=== PATIENT | female | born 1945 | race American Indian/Alaskan Native ===

== ENCOUNTER 2019-03-20 13:34 | Inpatient (IN) | payer MEDICARE ==
[2019-03-20 16:30] LABS: Bacteria,Urine 2+ /HPF (Negative); Bilirubin,Urine NEG (Negative); Blood,Urine NEG (Negative); Color,Urine Yellow (Yellow); Mucus,Urine FEW /HPF; Protein,Urine <15 mg/dL mg/dL (Negative); RBC,Urine < 1.0 /HPF (0.0-6.0); Urobilinogen,Urine < 2.0 mg/dL (<2.0)
--- NOTE | 2019-03-20 17:08 | Emergency Department Report ---
ED Altered Mental Status HPI - General Chief Complaint: Altered Mental Status Stated Complaint: AMS/WEAKNESS Time Seen by Provider: 03/20/19 17:04 Source: patient, family, EMS Mode of arrival: Stretcher Limitations: Physical Limitation - History of Present Illness Initial Comments: Patient is a 73-year-old female that presents emergency room with complaints of weakness, confusion, altered mental status. Patient states her symptoms started 3 days ago.. Patient states she had a stroke about 4 years ago leaving her with left-sided weakness. Patient states that she is having worsening left-sided weakness.. Patient denies fever and chills. Patient denies chest pain shortness of breath. Patient denies falling. Patient denies headache.. MD Complaint: altered mental status, confusion, weakness -: Sudden Severity: severe Consistency of Symptoms: constant Associated Symptoms: loss of appetite, malaise, weakness, foul smelling urine, difficulty walking - Related Data Home Medications Medication Instructions Recorded Confirmed Last Taken Lisinopril [Zestril TAB] 40 mg PO QDAY 03/20/19 03/20/19 03/19/19 cloNIDine [Catapres] 0.1 mg PO QHS 03/20/19 03/20/19 03/19/19 hydroCHLOROthiazide [HCTZ] 25 mg PO QDAY 03/20/19 03/20/19 03/19/19 metFORMIN [Glucophage] 500 mg PO BID 03/20/19 03/20/19 03/19/19 Previous Rx's Medication Instructions Recorded Last Taken Type amLODIPine [Norvasc] 10 mg PO DAILY #90 tab 05/12/13 03/19/19 Rx Allergies Allergy/AdvReac Type Severity Reaction Status Date / Time Penicillins Allergy Unknown Verified 05/12/13 12:57 ED Review of Systems ROS: Stated complaint: AMS/WEAKNESS Other details as noted in HPI Constitutional: denies: chills, fever Eyes: denies: eye pain, eye discharge, vision change ENT: denies: ear pain, throat pain Respiratory: denies: cough, shortness of breath, wheezing Cardiovascular: denies: chest pain, palpitations Endocrine: no symptoms reported Gastrointestinal: denies: abdominal pain, nausea, diarrhea Genitourinary: denies: urgency, dysuria, discharge Musculoskeletal: denies: back pain, joint swelling, arthralgia Skin: denies: rash, lesions Neurological: weakness, confusion. denies: headache, paresthesias Psychiatric: denies: anxiety, depression Hematological/Lymphatic: denies: easy bleeding, easy bruising ED Past Medical Hx - Past Medical History Previous Medical History?: Yes Hx Hypertension: Yes (has never been on blood pressure medication) Hx Diabetes: Yes Additional medical history: anemia - Surgical History Past Surgical History?: No - Family History Family history: no significant - Social History Smoking Status: Never Smoker Substance Use Type: None - Medications Home Medications: Home Medications Medication Instructions Recorded Confirmed Last Taken Type amLODIPine [Norvasc] 10 mg PO DAILY #90 tab 05/12/13 03/20/19 03/19/19 Rx Lisinopril [Zestril TAB] 40 mg PO QDAY 03/20/19 03/20/19 03/19/19 History cloNIDine [Catapres] 0.1 mg PO QHS 03/20/19 03/20/19 03/19/19 History hydroCHLOROthiazide [HCTZ] 25 mg PO QDAY 03/20/19 03/20/19 03/19/19 History metFORMIN [Glucophage] 500 mg PO BID 03/20/19 03/20/19 03/19/19 History ED Physical Exam - General Limitations: No Limitations, Physical Limitation General appearance: alert, in no apparent distress - Head Head exam: Present: atraumatic, normocephalic - Eye Eye exam: Present: normal appearance, PERRL Pupils: Present: normal accommodation - ENT ENT exam: Present: mucous membranes moist - Neck Neck exam: Present: normal inspection - Respiratory Respiratory exam: Present: normal lung sounds bilaterally. Absent: respiratory distress, wheezes - Cardiovascular Cardiovascular Exam: Present: regular rate, normal rhythm. Absent: systolic murmur, diastolic murmur, rubs, gallop - GI/Abdominal GI/Abdominal exam: Present: soft, normal bowel sounds. Absent: distended, tend erness, guarding - Rectal Rectal exam: Present: deferred - Extremities Exam Extremities exam: Present: normal inspection - Back Exam Back exam: Present: normal inspection - Neurological Exam Neurological exam: Present: alert, altered (patient is alert and oriented 2. Patient is oriented to self, place but disoriented to date) - Psychiatric Psychiatric exam: Present: normal affect, normal mood - Skin Skin exam: Present: warm, dry, intact, normal color. Absent: rash - Assessment Assessment Interval: Baseline - Level of Consciousness 1a. Level of Consciousness: alert/keenly responsive - LOC Questions 1b. LOC Questions: answers both correctly - LOC Command 1c. LOC Commands: performs tasks correctly - Best Gaze 2. Best Gaze: normal - Visual 3. Visual: no visual loss - Facial Palsy 4. Facial Palsy: normal symmetrical movement - Motor Arm 5a. Motor Arm Left: no movement 5b. Motor Arm Right: no drift - Motor Leg 6a. Motor Leg Left: some gravity effort 6b. Motor Leg Right: no drift - Limb Ataxia 7. Limb Ataxia: absent - Sensory 8. Sensory: normal - Best Language 9. Best Language: no aphasia - Dysarthria 10. Dysarthria: normal - Extinction and Inattention 11. Extinction/Inattention: no abnormality - Scoring Total Score: 6 Stroke Severity: Moderate Stroke ED Course Vital Signs 03/20/19 03/20/19 16:10 18:06 Pulse Rate 75 67 Respiratory 16 18 Rate Blood Pressure 138/60 129/86 [Left] O2 Sat by Pulse 99 97 Oximetry - Reevaluation(s) Reevaluation #1: I discussed all results with patient. I discussed plan of care with patient and family. Patient and family agree plan of care and admission. Patient will be admitted to the hospital service. 03/20/19 20:19 - Consultations Consultation #1: I discussed case with neurologist. Neurologist does not recommend any emergent imaging at this time. 03/20/19 20:11 Consultation #2: Hospitalist consult for admission. Hospitalist to admit patient. 03/20/19 20:20 - Lab Data Result diagrams: 03/20/19 16:20 03/20/19 16:20 Lab Results 03/20/19 03/20/19 03/20/19 Range/Units 16:20 16:20 16:22 WBC 9.9 (4.5-11.0) K/mm3 RBC 4.40 (3.65-5.03) M/mm3 Hgb 12.1 (10.1-14.3) gm/dl Hct 37.2 (30.3-42.9) % MCV 85 (79-97) fl MCH 28 (28-32) pg MCHC 33 (30-34) % RDW 14.0 (13.2-15.2) % Plt Count 198 (140-440) K/mm3 Lymph % (Auto) 15.0 (13.4-35.0) % [place] % (Auto) 6.1 (0.0-7.3) % Eos % (Auto) 0.0 (0.0-4.3) % Baso % (Auto) 0.5 (0.0-1.8) % Lymph # 1.5 (1.2-5.4) K/mm3 [place] # 0.6 (0.0-0.8) K/mm3 Eos # 0.0 (0.0-0.4) K/mm3 Baso # 0.0 (0.0-0.1) K/mm3 Seg Neutrophils % 78.4 H (40.0-70.0) % Seg Neutrophils # 7.7 (1.8-7.7) K/mm3 Sodium 139 (137-145) mmol/L Potassium 3.9 (3.6-5.0) mmol/L Chloride 103.6 (98-107) mmol/L Carbon Dioxide 20 L (22-30) mmol/L Anion Gap 19 mmol/L BUN 22 H (7-17) mg/dL Creatinine 0.9 (0.7-1.2) mg/dL Estimated GFR > 60 ml/min BUN/Creatinine Ratio 24 % Glucose 87 (65-100) mg/dL POC Glucose (70-105) Calcium 9.5 (8.4-10.2) mg/dL Urine Color Yellow (Yellow) Urine Turbidity Slightly-cloudy (Clear) Urine pH 5.0 (5.0-7.0) Ur Specific [place] 1.018 (1.003-1.030) Urine Protein <15 mg/dl (Negative) mg/dL Urine Glucose (UA) Neg (Negative) mg/dL Urine Ketones Neg (Negative) mg/dL Urine Blood Neg (Negative) Urine Nitrite Neg (Negative) Urine Bilirubin Neg (Negative) Urine Urobilinogen < 2.0 (<2.0) mg/dL Ur Leukocyte Esterase Neg (Negative) Urine WBC (Auto) 1.0 (0.0-6.0) /HPF Urine RBC (Auto) < 1.0 (0.0-6.0) /HPF Urine Bacteria (Auto) 2+ (Negative) /HPF Urine Mucus Few /HPF 03/20/19 Range/Units 16:33 WBC (4.5-11.0) K/mm3 RBC (3.65-5.03) M/mm3 Hgb (10.1-14.3) gm/dl Hct (30.3-42.9) % MCV (79-97) fl MCH (28-32) pg MCHC (30-34) % RDW (13.2-15.2) % Plt Count (140-440) K/mm3 Lymph % (Auto) (13.4-35.0) % [place] % (Auto) (0.0-7.3) % Eos % (Auto) (0.0-4.3) % Baso % (Auto) (0.0-1.8) % Lymph # (1.2-5.4) K/mm3 [place] # (0.0-0.8) K/mm3 Eos # (0.0-0.4) K/mm3 Baso # (0.0-0.1) K/mm3 Seg Neutrophils % (40.0-70.0) % Seg Neutrophils # (1.8-7.7) K/mm3 Sodium (137-145) mmol/L Potassium (3.6-5.0) mmol/L Chloride (98-107) mmol/L Carbon Dioxide (22-30) mmol/L Anion Gap mmol/L BUN (7-17) mg/dL Creatinine (0.7-1.2) mg/dL Estimated GFR ml/min BUN/Creatinine Ratio % Glucose (65-100) mg/dL POC Glucose 107 H (70-105) Calcium (8.4-10.2) mg/dL Urine Color (Yellow) Urine Turbidity (Clear) Urine pH (5.0-7.0) Ur Specific [place] (1.003-1.030) Urine Protein (Negative) mg/dL Urine Glucose (UA) (Negative) mg/dL Urine Ketones (Negative) mg/dL Urine Blood (Negative) Urine Nitrite (Negative) Urine Bilirubin (Negative) Urine Urobilinogen (<2.0) mg/dL Ur Leukocyte Esterase (Negative) Urine WBC (Auto) (0.0-6.0) /HPF Urine RBC (Auto) (0.0-6.0) /HPF Urine Bacteria (Auto) (Negative) /HPF Urine Mucus /HPF - EKG Data -: EKG Interpreted by Wy EKG shows normal: sinus rhythm, axis, intervals, ST-T waves Rate: normal - Radiology Data Radiology results: report reviewed CT head/brain wo con INDICATION / CLINICAL INFORMATION: 73 years Female; AMS. TECHNIQUE: Routine CT head without contrast. All CT scans at this location are performed using CT dose reduction for ALARA by means of automated exposure control. COMPARISON: None. FINDINGS: BRAIN / INTRACRANIAL CONTENTS: Old, branch MCA infarct seen in the anterior parietal lobe on the right and the left inferior parietal temporal region. Subtle ischemic changes seen in the right parietal temporal region - diffusion imaging by MRI may be helpful for further evaluation. Small branch, acute/subacute MCA infarct suggested on the right. There may be ischemic changes in the head of the caudate on the right. Otherwise, no acute hemorrhage, mass effect, midline shift, hydrocephalus, or acute, large territorial infarct. Mild to moderate cerebral and cerebellar atrophy. There are [id number] areas of decreased attenuation in the white matter of the cerebral hemispheres, as well as the gangliocapsular regions. These are nonspecific findi ngs and may be related to microangiopathy (hypertension, diabetes, atherosclerosis), given the patient's age. It might be difficult to evaluate for small areas of ischemia without diffusion imaging by MRI. CRANIOCERVICAL JUNCTION: No significant abnormality. ORBITS: No significant abnormality of visualized orbits. SINUSES / MASTOIDS: No significant abnormality of the visualized paranasal sinuses or mastoid air cells. ADDITIONAL FINDINGS: Atherosclerotic disease is seen in the anterior and pos terior circulation. IMPRESSION: 1. I am concerned about a small area of ischemia in the right parietal temporal region - right MCA territory. Right gangliocapsular involvement cannot be excluded as well. Diffusion imaging by MRI would be helpful for further evaluation, if clinically warranted. 2. Otherwise, no focal mass, hemorrhage, hydrocephalus, or acute, large territorial infarct appreciated. CT cervical spine without contrast CLINICAL HISTORY: Altered mental status, fall FINDINGS: No previous exams available for comparison. The motion and positioning significant degrades the image quality. However, there is mild curvature of the cervical spine is slight reversal of the cervical lordosis. Furthermore, there are multilevel degenerative changes involving the cervical spine at. However, there is no definitive CT evidence of acute fracture. There is mild rotation at C1-2 which appears to be related to the positioning and curvature of the spine at. The facet and uncovertebral joint hypertrophy at C3 L4 result in moderate to marked neural foraminal narrowing bilaterally at. The spondylosis at C4-5 effaces the ventral subarachnoid space at. There is marked left and moderate to marked right neural foraminal narrowing. The spondylosis at C5-6 also effaces the ventral subarachnoid space with encroachment on the left lateral recess at. There is marked left neural foraminal narrowing. There is also moderate to marked left foraminal narrowing at C6-7. The left facet joint hypertrophy at C7-T1 results in moderate left foraminal narrowing. No prevertebral soft tissue fluid collections are identified at. There is notable atherosclerotic calcification involving the carotid bifurcations bilaterally. There is relative a sclerotic appearance of the visualized occipital bone which is of unclear etiology. All CT scans at this location are performed using the CT dose reduction for [employer] by means of automated exposure control. IMPRESSION: There is mild curvature of the spine with multilevel degenerative changes as detailed above. There is no definitive CT evidence of acute fracture involving the cervical spine. - Medical Decision Making Is a 73-year-old female that presents emergency room with worsening left-sided weakness. Patient had a stroke years ago leaving her weak on the left side. Patient's weakness has increased, symptoms started 3 days ago. Patient also complained of confusion and altered mental status. Patient oriented in the ER. Patient had labs unremarkable. Patient had CT done which shows a acute stroke. Patient admitted to the hospitalist service. - Differential Diagnosis CVA. Weakness. Confusion. AMS Critical Care Time: Yes Critical care attestation.: If time is entered above; I have spent that time in minutes in the direct care of this critically ill patient, excluding procedure time. Critical Care Time: 45 minutes ED Disposition Clinical Impression: Weakness, Confusion Altered mental state Qualifiers: Altered mental status type: unspecified Qualified Code(s): R41.82 - Altered mental status, unspecified CVA (cerebral vascular accident) Qualifiers: CVA mechanism: unspecified Qualified Code(s): I63.9 - Cerebral infarction, unspecified Disposition: 09 OP ADMIT IP TO THIS HOSP Is pt being admited?: Yes Does the pt Need Aspirin: No Condition: Critical Time of Disposition: 20:25
--- NOTE | 2019-03-20 17:49 | Cat Scan Report ---
CT head/brain wo con INDICATION / CLINICAL INFORMATION: 73 years Female; AMS. TECHNIQUE: Routine CT head without contrast. All CT scans at this location are performed using CT dos e reduction for ALARA by means of automated exposure control. COMPARISON: None. FINDINGS: BRAIN / INTRACRANIAL CONTENTS: Old, branch MCA infarct seen in the anterior parietal lobe on the righ t and the left inferior parietal temporal region. Subtle ischemic changes seen in the right parietal temporal region - diffusion imaging by MRI may be helpful for further evaluation. Small branch, acute/subacute MCA infarct suggested on the right. Ther e may be ischemic changes in the head of the caudate on the right. Otherwise, no acute hemorrhage, mass effect, midline shift, hydrocephalus, or acute, large territoria l infarct. Mild to moderate cerebral and cerebellar atrophy. There are [id number] areas of decreased attenuation in the white matter of the cerebral hemisph eres, as well as the gangliocapsular regions. These are nonspecific findings and may be related to mi croangiopathy (hypertension, diabetes, atherosclerosis), given the patient's age. It might be difficu lt to evaluate for small areas of ischemia without diffusion imaging by MRI. CRANIOCERVICAL JUNCTION: No significant abnormality. ORBITS: No significant abnormality of visualized orbits. SINUSES / MASTOIDS: No significant abnormality of the visualized paranasal sinuses or mastoid air scot ls. ADDITIONAL FINDINGS: Atherosclerotic disease is seen in the anterior and posterior circulation. IMPRESSION: 1. I am concerned about a small area of ischemia in the right parietal temporal region - right MCA te rritory. Right gangliocapsular involvement cannot be excluded as well. Diffusion imaging by MRI would be helpful for further evaluation, if clinically warranted. 2. Otherwise, no focal mass, hemorrhage, hydrocephalus, or acute, large territorial infarct appreciat ed. Signer Name: Gordo Koenig MD, III Signed: 03/20/2019 5:44 PM Workstation Name: [id number]
--- NOTE | 2019-03-20 18:35 | Cat Scan Report ---
CT cervical spine without contrast CLINICAL HISTORY: Altered mental status, fall FINDINGS: No previous exams available for comparison. The motion and positioning significant degrades the image quality. However, there is mild curvature of the cervical spine is slight reversal of the cervical lordosis. Furthermore, there are multilevel degenerative changes involving the cervical spin e at. However, there is no definitive CT evidence of acute fracture. There is mild rotation at C1-2 which appears to be related to the positioning and curvature of the sp ine at. The facet and uncovertebral joint hypertrophy at C3 L4 result in moderate to marked neural fo raminal narrowing bilaterally at. The spondylosis at C4-5 effaces the ventral subarachnoid space at. There is marked left and moderate to marked right neural foraminal narrowing. The spondylosis at C5-6 also effaces the ventral subarachnoid space with encroachment on the left lat eral recess at. There is marked left neural foraminal narrowing. There is also moderate to marked lef t foraminal narrowing at C6-7. The left facet joint hypertrophy at C7-T1 results in moderate left for aminal narrowing. No prevertebral soft tissue fluid collections are identified at. There is notable atherosclerotic baldemar cification involving the carotid bifurcations bilaterally. There is relative a sclerotic appearance o f the visualized occipital bone which is of unclear etiology. All CT scans at this location are perfo rmed using the CT dose reduction for ALARA by means of automated exposure control. IMPRESSION: There is mild curvature of the spine with multilevel degenerative changes as detailed above. There is no definitive CT evidence of acute fracture involving the cervical spine. Signer Name: Alfredo Tovar MD Signed: 03/20/2019 6:31 PM Workstation Name: [id number]
[2019-03-20 19:58] LABS: Basophils % (Auto) 0.5 % (0.0-1.8); Hematocrit 37.2 % (30.3-42.9); Hemoglobin 12.1 gm/dl (10.1-14.3); Lymphocytes # (Auto) 1.5 K/mm3 (1.2-5.4); Mean Corpuscular HGB Conc 33 % (30-34); Mean Corpuscular Volume 85 fl (79-97); Monocytes # (Auto) 0.6 K/mm3 (0.0-0.8); Monocytes % (Auto) 6.1 % (0.0-7.3); Platelet Count 198 K/mm3 (140-440)
[2019-03-20 20:17] LABS: BUN/Creatinine Ratio 24; Blood Urea Nitrogen 22 mg/dL (7-17); Calcium 9.5 mg/dL (8.4-10.2); Hemolysis Index 13
[2019-03-20] MEDS ORDERED: DEXTROSE 50% IN WATER (25GM) 50 ML SYRINGE IV PRN (23:20)
[2019-03-21 01:24] LABS: Creatine Kinase MB 3.1 ng/mL (0.0-4.0)
[2019-03-21] MEDS: INSULIN REGULAR, HUMAN 100 UNITS/1 ML SUB-Q SCH ×6 (02:08→21:49)
[2019-03-21] MEDS ORDERED: diphenhydrAMINE 25 MG CAP PO ONE (02:48)
--- NOTE | 2019-03-21 05:58 | History and Physical Report ---
CHIEF COMPLAINT: Altered mental status. HISTORY OF PRESENTING ILLNESS: The patient is a 73-year-old female who said she has been feeling weak and then was confused and fell down in the staircase. The patient said the symptoms started about 3 days ago. There was no history of chest pain, no history of shortness of breath, nausea, vomiting or fever or chills. There was also no history of headache and the patient presented for evaluation in the Emergency Room. There was also history of difficulty with ambulation and loss of appetite. PAST MEDICAL HISTORY: Pertinent for hypertension, diabetes mellitus, anemia, cerebrovascular accident. PAST SURGICAL HISTORY: Unremarkable. FAMILY HISTORY: Family history is noncontributory. SOCIAL HISTORY: The patient does not smoke, does not drink alcohol and does not use illicit drugs. MEDICATIONS: The patient is on Norvasc 10 mg by mouth daily, lisinopril 40 mg by mouth daily, Catapres 0.1 mg by mouth at bedtime, hydrochlorothiazide 25 mg by mouth daily and Glucophage 500 mg by mouth twice daily. ALLERGIES: The patient is allergic to PENICILLIN. REVIEW OF SYSTEMS: CONSTITUTIONAL: There is no fever, no chills, no diaphoresis. HEENT: There is no headache or sore throat. CARDIOVASCULAR SYSTEM: There is no chest pain or orthopnea. RESPIRATORY SYSTEM: There is no shortness of breath or cough. GASTROINTESTINAL SYSTEM: There is no nausea, no vomiting, no abdominal pain, diarrhea or constipation. NEUROLOGICAL SYSTEM: Altered mental status noted, weakness noted. There is no numbness. MUSCULOSKELETAL SYSTEM: There is no joint pain or swelling. DERMATOLOGICAL SYSTEM: There is no skin rash or itching. GENITOURINARY SYSTEM: There is dysuria, but no hematuria or flank pain. Rest of system review is normal. PHYSICAL EXAMINATION: GENERAL: At the time of exam, the patient was found to be alert, oriented to person only and not in acute distress. VITAL SIGNS: Initially show normal temperature with pulse of 75, respirations 16, blood pressure 138/60, O2 sat of 99% on room air. HEENT: Showed pupils to be equal, round, reactive to light and accommodating. Extraocular muscles are intact. NECK: Neck is supple with no JVD or carotid bruit. CARDIOVASCULAR SYSTEM: Showed normal first and second heart sounds with no gallops or murmurs. RESPIRATORY SYSTEM: Showed good air entry on both sides of the lungs with no abnormal breath sounds. GASTROINTESTINAL SYSTEM: Showed abdomen to be full, soft, nontender with no organomegaly or rigidity. NEUROLOGIC: Shows weakness on the left side of the body, which is chronic from previous cerebrovascular accident. No new focal deficit was elicited. MUSCULOSKELETAL SYSTEM: Showed no joint swelling or tenderness. DERMATOLOGICAL SYSTEM: Showed no skin rash. GENITOURINARY SYSTEM: Showing no costovertebral angle tenderness. PERTINENT LABORATORY AND IMAGING STUDIES: The patient had CT of the head without contrast done, which shows a small area of ischemia in the right parietotemporal region, which the radiologist said is concerning and this is found in the right parietotemporal region of the right MCA territory. There is right ____ involvement which the radiologist said cannot be excluded. Radiologist said that diffusion imaging by MRI will be helpful for further evaluation if clinically warranted. There is finding of no focal mass, no hemorrhage, no hydrocephalus or acute large territorial infarct seen. The patient also has CT of the cervical spine without contrast done and this shows mild curvature of the spine with multilevel degenerative changes as detailed above. There is no definite CT evidence of acute fracture involving cervical spine. LABORATORY RESULTS: The patient had CBC done that came back unremarkable and the patient's chemistry was unremarkable. Cardiac enzyme was normal. The patient's urinalysis was normal. DIAGNOSES: 1. Cerebrovascular accident. 2. Weakness. PLAN OF CARE: 1. The patient will be admitted to telemetry. 2. The patient will have MRI of the brain without contrast done this morning. 3. The patient will have bilateral carotid Doppler done as well as 2D echo done this morning. 4. The patient will have Neurology consult with Dr. Carrera this Saturday morning, 03/21/2019 if he is available. 5. The patient will have physical therapy consult for evaluation and treatment for weakness. 6. The patient will remain n.p.o. until swallow test is passed. 7. The patient will have serial cardiac enzymes involving troponin, total CK and CK-MB checked every 6 hours x 2 more levels. 8. The patient will be on Accu-Chek every 4 hours followed by low-dose sliding scale using regular insulin coverage. JOB# [id number] OCN/NTS MTDD
[2019-03-21 06:47] LABS: Creatine Kinase MB 3.7 ng/mL (0.0-4.0)
[2019-03-21] MEDS: ASPIRIN 325 MG TAB PO SCH (10:56)
--- NOTE | 2019-03-21 11:03 | Consultation ---
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- suspect multi infarct dementia like Medications and Allergies Allergies Allergy/AdvReac Type Severity Reaction Status Date / Time Penicillins Allergy Unknown Verified 05/12/13 12:57 Home Medications Medication Instructions Recorded Confirmed Last Taken Type amLODIPine [Norvasc] 10 mg PO DAILY #90 tab 05/12/13 03/20/19 03/19/19 Rx Lisinopril [Zestril TAB] 40 mg PO QDAY 03/20/19 03/20/19 03/19/19 History cloNIDine [Catapres] 0.1 mg PO QHS 03/20/19 03/20/19 03/19/19 History hydroCHLOROthiazide [HCTZ] 25 mg PO QDAY 03/20/19 03/20/19 03/19/19 History metFORMIN [Glucophage] 500 mg PO BID 03/20/19 03/20/19 03/19/19 History Active Meds: Active Medications Aspirin (Aspirin) 325 mg PO QDAY [facility] Last Admin: 03/21/19 10:56 Dose: 325 mg Documented by: Atorvastatin Calcium (Lipitor) 80 mg PO QHS [facility] Dextrose (D50w (25gm) Syringe) 50 ml IV PRN PRN PRN Reason: Hypoglycemia Insulin Human Regular (Humulin R) 0 units SUB-Q ACHS [facility]; Protocol Pneumococcal Polyvalent Vaccine (Pneumovax 23) 0.5 ml IM .ONCE ONE Stop: 03/21/19 12:01 Physical Examination - Vital Signs Vital Signs: Vital Signs Pulse Resp BP Pulse Ox 75 16 138/60 99 03/20/19 16:10 03/20/19 16:10 03/20/19 16:10 03/20/19 16:10 Results - Laboratory Findings CBC and BMP: 03/20/19 16:20 03/20/19 16:20 Abnormal Lab Findings: Abnormal Labs 03/20/19 03/20/19 03/20/19 16:20 16:20 16:33 Seg Neutrophils % 78.4 H Carbon Dioxide 20 L BUN 22 H POC Glucose 107 H Total Creatine Kinase 03/21/19 03/21/19 03/21/19 01:38 04:56 05:50 Seg Neutrophils % Carbon Dioxide BUN POC Glucose 131 H 150 H Total Creatine Kinase 143 H 03/21/19 08:00 Seg Neutrophils % Carbon Dioxide BUN POC Glucose 128 H Total Creatine Kinase
[2019-03-21] MEDS ORDERED: PNEUMOCOCCAL 23 Valent 0.5 ML VIAL IM ONE (12:00)
--- NOTE | 2019-03-21 12:07 | Progress Note ---
Assessment and Plan Assessment and plan: Right MCA CVA. CT shows severe atrophy and massive ?old right MCA stroke. Follow-up MRI Multi-infarct dementia. Neurology following. Hypertension. Resume home antihypertensive medications. Diabetes mellitus type II. Continue Accu-Cheks and sliding scale insulin. Resume metformin. Generalized weakness. PT/OT eval History Interval history: No new issues overnight. Hospitalist Physical - Constitutional Vitals: Temp Pulse Resp BP Pulse Ox 98.7 F 88 18 155/61 94 03/21/19 07:51 03/21/19 07:51 03/21/19 07:51 03/21/19 07:51 03/21/19 07:51 General appearance: Present: no acute distress, well-nourished - EENT Eyes: Present: PERRL, EOM intact ENT: hearing intact, clear oral mucosa, dentition normal - Neck Neck: Present: supple, normal ROM - Respiratory Respiratory effort: normal Respiratory: bilateral: CTA - Cardiovascular Rhythm: regular Heart Sounds: Present: S1 & S2. Absent: gallop, rub - Extremities Extremities: no ischemia, No edema, Full ROM - Abdominal General gastrointestinal: soft, non-tender, non-distended, normal bowel sounds - Integumentary Integumentary: Present: clear, warm, dry - Neurologic Neurologic: CNII-XII intact, moves all extremities Results - Labs CBC & Chem 7: 03/20/19 16:20 03/20/19 16:20 Labs: Laboratory Last Values WBC 9.9 K/mm3 (4.5-11.0) 03/20/19 16:20 RBC 4.40 M/mm3 (3.65-5.03) 03/20/19 16:20 Hgb 12.1 gm/dl (10.1-14.3) 03/20/19 16:20 Hct 37.2 % (30.3-42.9) 03/20/19 16:20 MCV 85 fl (79-97) 03/20/19 16:20 MCH 28 pg (28-32) 03/20/19 16:20 MCHC 33 % (30-34) 03/20/19 16:20 RDW 14.0 % (13.2-15.2) 03/20/19 16:20 Plt Count 198 K/mm3 (140-440) 03/20/19 16:20 Lymph % (Auto) 15.0 % (13.4-35.0) 03/20/19 16:20 [place] % (Auto) 6.1 % (0.0-7.3) 03/20/19 16:20 Eos % (Auto) 0.0 % (0.0-4.3) 03/20/19 16:20 Baso % (Auto) 0.5 % (0.0-1.8) 03/20/19 16:20 Lymph # 1.5 K/mm3 (1.2-5.4) 03/20/19 16:20 [place] # 0.6 K/mm3 (0.0-0.8) 03/20/19 16:20 Eos # 0.0 K/mm3 (0.0-0.4) 03/20/19 16:20 Baso # 0.0 K/mm3 (0.0-0.1) 03/20/19 16:20 Seg Neutrophils % 78.4 % (40.0-70.0) H 03/20/19 16:20 Seg Neutrophils # 7.7 K/mm3 (1.8-7.7) 03/20/19 16:20 Sodium 139 mmol/L (137-145) 03/20/19 16:20 Potassium 3.9 mmol/L (3.6-5.0) 03/20/19 16:20 Chloride 103.6 mmol/L (98-107) 03/20/19 16:20 Carbon Dioxide 20 mmol/L (22-30) L 03/20/19 16:20 19 mmol/L 03/20/19 16:20 BUN 22 mg/dL (7-17) H 03/20/19 16:20 0.9 mg/dL (0.7-1.2) 03/20/19 16:20 Estimated GFR > 60 ml/min 03/20/19 16:20 24 % 03/20/19 16:20 Glucose 87 mg/dL (65-100) 03/20/19 16:20 POC Glucose 128 (70-105) H 03/21/19 08:00 Calcium 9.5 mg/dL (8.4-10.2) 03/20/19 16:20 143 units/L (30-135) H 03/21/19 05:50 CK-MB (CK-2) 3.7 ng/mL (0.0-4.0) 03/21/19 05:50 CK-MB (CK-2) Rel Index 2.5 (0-4) 03/21/19 05:50 < 0.010 ng/mL (0.00-0.029) 03/21/19 05:50 Yellow (Yellow) 03/20/19 16:22 Slightly-cloudy (Clear) 03/20/19 16:22 5.0 (5.0-7.0) 03/20/19 16:22 Ur Specific [place] 1.018 (1.003-1.030) 03/20/19 16:22 <15 mg/dl mg/dL (Negative) 03/20/19 16:22 Neg mg/dL (Negative) 03/20/19 16:22 Neg mg/dL (Negative) 03/20/19 16:22 Neg (Negative) 03/20/19 16:22 Neg (Negative) 03/20/19 16:22 Neg (Negative) 03/20/19 16:22 < 2.0 mg/dL (<2.0) 03/20/19 16:22 Ur Leukocyte Esterase Neg (Negative) 03/20/19 16:22 1.0 /HPF (0.0-6.0) 03/20/19 16:22 < 1.0 /HPF (0.0-6.0) 03/20/19 16:22 2+ /HPF (Negative) 03/20/19 16:22 Few /HPF 03/20/19 16:22 Active Medications - Current Medications Current Medications: Generic Name Dose Route Start Last Admin Trade Name Freq PRN Reason Stop Dose Admin Aspirin 325 mg 03/21/19 10:00 03/21/19 10:56 Aspirin PO 325 mg QDAY JULIEN Administration Atorvastatin Calcium 80 mg 03/21/19 22:00 Lipitor PO QHS [facility] Dextrose 50 ml 03/20/19 23:20 D50w (25gm) Syringe IV PRN PRN Hypoglycemia Insulin Human Regular 0 units 03/21/19 11:30 Humulin R SUB-Q ACHS [facility] Protocol
[2019-03-21] MEDS: cloNIDine 0.1 MG TAB PO SCH (21:48)
[2019-03-21] MEDS: metFORMIN 500 MG TAB PO SCH (21:48)
[2019-03-22] MEDS: INSULIN REGULAR, HUMAN 100 UNITS/1 ML SUB-Q SCH ×4 (08:35→22:08)
[2019-03-22] MEDS: amLODIPine 10 MG TAB PO SCH (09:41)
[2019-03-22] MEDS: hydroCHLOROthiazide 25 MG TAB PO SCH (09:41)
[2019-03-22] MEDS: LISINOPRIL 40 MG TAB PO SCH (09:41)
[2019-03-22] MEDS: metFORMIN 500 MG TAB PO SCH ×2 (09:42→22:07)
[2019-03-22] MEDS: ASPIRIN 325 MG TAB PO SCH (10:00)
--- NOTE | 2019-03-22 10:59 | Progress Note ---
Assessment and Plan Assessment and plan: Right MCA CVA. CT shows severe atrophy and massive ?old right MCA stroke. Follow-up MRI Multi-infarct dementia. Neurology following. Hypertension. Resume home antihypertensive medications. Diabetes mellitus type II. Continue Accu-Cheks and sliding scale insulin. Resumed metformin. Generalized weakness. PT/OT eval History Interval history: No new issues overnight. Patient remains confused Hospitalist Physical - Constitutional Vitals: Temp Pulse Resp BP Pulse Ox 98.3 F 72 18 135/54 98 03/22/19 07:53 03/22/19 09:41 03/22/19 07:53 03/22/19 09:41 03/22/19 07:53 General appearance: Present: no acute distress, well-nourished - EENT Eyes: Present: PERRL, EOM intact ENT: hearing intact, clear oral mucosa, dentition normal - Neck Neck: Present: supple, normal ROM - Respiratory Respiratory effort: normal Respiratory: bilateral: CTA - Cardiovascular Rhythm: regular Heart Sounds: Present: S1 & S2. Absent: gallop, rub - Extremities Extremities: no ischemia, No edema, Full ROM - Abdominal General gastrointestinal: soft, non-tender, non-distended, normal bowel sounds - Integumentary Integumentary: Present: clear, warm, dry - Neurologic Neurologic: CNII-XII intact, moves all extremities Results - Labs CBC & Chem 7: 03/20/19 16:20 03/20/19 16:20 Labs: Laboratory Last Values WBC 9.9 K/mm3 (4.5-11.0) 03/20/19 16:20 RBC 4.40 M/mm3 (3.65-5.03) 03/20/19 16:20 Hgb 12.1 gm/dl (10.1-14.3) 03/20/19 16:20 Hct 37.2 % (30.3-42.9) 03/20/19 16:20 MCV 85 fl (79-97) 03/20/19 16:20 MCH 28 pg (28-32) 03/20/19 16:20 MCHC 33 % (30-34) 03/20/19 16:20 RDW 14.0 % (13.2-15.2) 03/20/19 16:20 Plt Count 198 K/mm3 (140-440) 03/20/19 16:20 Lymph % (Auto) 15.0 % (13.4-35.0) 03/20/19 16:20 [place] % (Auto) 6.1 % (0.0-7.3) 03/20/19 16:20 Eos % (Auto) 0.0 % (0.0-4.3) 03/20/19 16:20 Baso % (Auto) 0.5 % (0.0-1.8) 03/20/19 16:20 Lymph # 1.5 K/mm3 (1.2-5.4) 03/20/19 16:20 [place] # 0.6 K/mm3 (0.0-0.8) 03/20/19 16:20 Eos # 0.0 K/mm3 (0.0-0.4) 03/20/19 16:20 Baso # 0.0 K/mm3 (0.0-0.1) 03/20/19 16:20 Seg Neutrophils % 78.4 % (40.0-70.0) H 03/20/19 16:20 Seg Neutrophils # 7.7 K/mm3 (1.8-7.7) 03/20/19 16:20 Sodium 139 mmol/L (137-145) 03/20/19 16:20 Potassium 3.9 mmol/L (3.6-5.0) 03/20/19 16:20 Chloride 103.6 mmol/L (98-107) 03/20/19 16:20 Carbon Dioxide 20 mmol/L (22-30) L 03/20/19 16:20 19 mmol/L 03/20/19 16:20 BUN 22 mg/dL (7-17) H 03/20/19 16:20 0.9 mg/dL (0.7-1.2) 03/20/19 16:20 Estimated GFR > 60 ml/min 03/20/19 16:20 24 % 03/20/19 16:20 Glucose 87 mg/dL (65-100) 03/20/19 16:20 POC Glucose 130 (70-105) H 03/22/19 08:01 Calcium 9.5 mg/dL (8.4-10.2) 03/20/19 16:20 143 units/L (30-135) H 03/21/19 05:50 CK-MB (CK-2) 3.7 ng/mL (0.0-4.0) 03/21/19 05:50 CK-MB (CK-2) Rel Index 2.5 (0-4) 03/21/19 05:50 < 0.010 ng/mL (0.00-0.029) 03/21/19 05:50 Yellow (Yellow) 03/20/19 16:22 Slightly-cloudy (Clear) 03/20/19 16:22 5.0 (5.0-7.0) 03/20/19 16:22 Ur Specific [place] 1.018 (1.003-1.030) 03/20/19 16:22 <15 mg/dl mg/dL (Negative) 03/20/19 16:22 Neg mg/dL (Negative) 03/20/19 16:22 Neg mg/dL (Negative) 03/20/19 16:22 Neg (Negative) 03/20/19 16:22 Neg (Negative) 03/20/19 16:22 Neg (Negative) 03/20/19 16:22 < 2.0 mg/dL (<2.0) 03/20/19 16:22 Ur Leukocyte Esterase Neg (Negative) 03/20/19 16:22 1.0 /HPF (0.0-6.0) 03/20/19 16:22 < 1.0 /HPF (0.0-6.0) 03/20/19 16:22 2+ /HPF (Negative) 03/20/19 16:22 Few /HPF 03/20/19 16:22 Active Medications - Current Medications Current Medications: Generic Name Dose Route Start Last Admin Trade Name Freq PRN Reason Stop Dose Admin Amlodipine Besylate 10 mg 03/22/19 10:00 03/22/19 09:41 Norvasc PO 10 mg DAILY JULIEN Administration Aspirin 325 mg 03/21/19 10:00 03/22/19 10:00 Aspirin PO 325 mg QDAY JULIEN Administration Atorvastatin Calcium 80 mg 03/21/19 22:00 03/21/19 21:48 Lipitor PO 80 mg QHS JULIEN Administration Clonidine HCl 0.1 mg 03/21/19 22:00 03/21/19 21:48 Catapres PO 0.1 mg QHS JULIEN Administration Dextrose 50 ml 09/20/19 23:20 D50w (25gm) Syringe IV PRN PRN Hypoglycemia Hydrochlorothiazide 25 mg 03/22/19 10:00 03/22/19 09:41 Hctz PO 25 mg QDAY JULIEN Administration Insulin Human Regular 0 units 03/21/19 11:30 03/22/19 08:35 Humulin R SUB-Q Not Given ACHS JULIEN Protocol Lisinopril 40 mg 03/22/19 10:00 03/22/19 09:41 Zestril PO 40 mg QDAY JULIEN Administration Metformin HCl 500 mg 03/21/19 22:00 03/22/19 09:42 Glucophage PO 500 mg BID JULIEN Administration Nutrition/Malnutrition Assess - Dietary Evaluation Nutrition/Malnutrition Findings: Nutrition Notes Start: 03/21/19 15:44 Freq: Status: Active Protocol: Document 03/21/19 15:44 RM (Rec: 03/21/19 15:50 RM [id number]) Nutrition Notes 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 Pt confused at time of visit. Per tech pt is eating bites of her meals. No A1c in record. Pt not appropriate for diet education at this time. Burn Absent Trauma Absent Minimum of two criteria No #1 Nutrition Diagnosis Inadequate oral intake Etiology AMS As Evidenced by Signs and Symptoms pt tech statement that pt eats bites of her meals Is patient on ventilator? No Is Patient Ambulatory and/or Out of Bed No REE-([facility]-confined to bed) 0567.997 Calculation Used for Recommendations [facility] Additional Notes Protein Needs: 85-101g (1-1.2g /kg) Fluid Needs: 1 ml/kcal Nutrition Intervention Change Diet Order: Continue current Add Supplement/Snack (indicate name/kcal Glucerna 1 daily /protein ) Provides kCal: 220 Provides Protein (gm) 10 Goal #1 Meet at least 75% of calorie and protein needs via PO and ONS intakes Anticipated Discharge Needs: Unable to determine at this time Follow-Up By: 03/23/19 Additional Comments Follow for PO and ONS intakes, need for DM diet education
[2019-03-22] MEDS: cloNIDine 0.1 MG TAB PO SCH (22:07)
[2019-03-23 08:01] LABS: Basophils # (Auto) 0.1 K/mm3 (0.0-0.1); Basophils % (Auto) 0.6 % (0.0-1.8); Hematocrit 35.7 % (30.3-42.9); Hemoglobin 11.9 gm/dl (10.1-14.3); Lymphocytes # (Auto) 2.8 K/mm3 (1.2-5.4); Lymphocytes % (Auto) 27.7 % (13.4-35.0); Mean Corpuscular HGB Conc 34 % (30-34); Mean Corpuscular Volume 83 fl (79-97); Monocytes # (Auto) 0.9 K/mm3 (0.0-0.8); Monocytes % (Auto) 8.9 % (0.0-7.3); Platelet Count 211 K/mm3 (140-440); Red Blood Count 4.29 M/mm3 (3.65-5.03); Red Cell Distribution Width 13.5 % (13.2-15.2)
[2019-03-23 08:07] LABS: BUN/Creatinine Ratio 26; Blood Urea Nitrogen 21 mg/dL (7-17); Calcium 9.2 mg/dL (8.4-10.2); Hemolysis Index 0
[2019-03-23] MEDS: INSULIN REGULAR, HUMAN 100 UNITS/1 ML SUB-Q SCH ×4 (08:39→22:04)
[2019-03-23] MEDS: metFORMIN 500 MG TAB PO SCH ×2 (10:39→22:03)
[2019-03-23] MEDS: amLODIPine 10 MG TAB PO SCH (10:39)
[2019-03-23] MEDS: LISINOPRIL 40 MG TAB PO SCH (10:39)
[2019-03-23] MEDS: hydroCHLOROthiazide 25 MG TAB PO SCH (10:39)
[2019-03-23] MEDS: ASPIRIN 325 MG TAB PO SCH (10:39)
--- NOTE | 2019-03-23 10:55 | Progress Note ---
Assessment and Plan Assessment and plan: Right MCA CVA. CT shows severe atrophy and massive ?old right MCA stroke. Follow-up MRI. PT/OT evaluation pending. Multi-infarct dementia. Neurology following. Hypertension. Cont. antihypertensive medications. Diabetes mellitus type II. Continue Accu-Cheks and sliding scale insulin. Resumed metformin. Generalized weakness. PT/OT eval Disposition. Await PT/OT recommendations. History Interval history: No new issues overnight. Patient remains confused Hospitalist Physical - Constitutional Vitals: Temp Pulse Resp BP Pulse Ox 98.3 F 73 18 145/63 100 03/23/19 08:00 03/23/19 10:39 03/23/19 08:00 03/23/19 10:39 03/23/19 08:00 General appearance: Present: no acute distress, well-nourished - EENT Eyes: Present: PERRL, EOM intact ENT: hearing intact, clear oral mucosa, dentition normal - Neck Neck: Present: supple, normal ROM - Respiratory Respiratory effort: normal Respiratory: bilateral: CTA - Cardiovascular Rhythm: regular Heart Sounds: Present: S1 & S2. Absent: gallop, rub - Extremities Extremities: no ischemia, No edema, Full ROM - Abdominal General gastrointestinal: soft, non-tender, non-distended, normal bowel sounds - Integumentary Integumentary: Present: clear, warm, dry - Neurologic Neurologic: CNII-XII intact, moves all extremities Results - Labs CBC & Chem 7: 03/23/19 07:05 03/23/19 07:05 Labs: Laboratory Last Values WBC 10.0 K/mm3 (4.5-11.0) 03/23/19 07:05 RBC 4.29 M/mm3 (3.65-5.03) 03/23/19 07:05 Hgb 11.9 gm/dl (10.1-14.3) 03/23/19 07:05 Hct 35.7 % (30.3-42.9) 03/23/19 07:05 MCV 83 fl (79-97) 03/23/19 07:05 MCH 28 pg (28-32) 03/23/19 07:05 MCHC 34 % (30-34) 03/23/19 07:05 RDW 13.5 % (13.2-15.2) 03/23/19 07:05 Plt Count 211 K/mm3 (140-440) 03/23/19 07:05 Lymph % (Auto) 27.7 % (13.4-35.0) 03/23/19 07:05 [place] % (Auto) 8.9 % (0.0-7.3) H 03/23/19 07:05 Eos % (Auto) 0.0 % (0.0-4.3) 03/23/19 07:05 Baso % (Auto) 0.6 % (0.0-1.8) 03/23/19 07:05 Lymph # 2.8 K/mm3 (1.2-5.4) 03/23/19 07:05 [place] # 0.9 K/mm3 (0.0-0.8) H 03/23/19 07:05 Eos # 0.0 K/mm3 (0.0-0.4) 03/23/19 07:05 Baso # 0.1 K/mm3 (0.0-0.1) 03/23/19 07:05 Seg Neutrophils % 62.8 % (40.0-70.0) 03/23/19 07:05 Seg Neutrophils # 6.3 K/mm3 (1.8-7.7) 03/23/19 07:05 Sodium 140 mmol/L (137-145) 03/23/19 07:05 Potassium 3.8 mmol/L (3.6-5.0) 03/23/19 07:05 Chloride 102.2 mmol/L (98-107) 03/23/19 07:05 Carbon Dioxide 24 mmol/L (22-30) 03/23/19 07:05 18 mmol/L 03/23/19 07:05 BUN 21 mg/dL (7-17) H 03/23/19 07:05 0.8 mg/dL (0.7-1.2) 03/23/19 07:05 Estimated GFR > 60 ml/min 03/23/19 07:05 26 % 03/23/19 07:05 Glucose 130 mg/dL (65-100) H 03/23/19 07:05 POC Glucose 140 (70-105) H 03/23/19 08:10 Calcium 9.2 mg/dL (8.4-10.2) 03/23/19 07:05 143 units/L (30-135) H 03/21/19 05:50 CK-MB (CK-2) 3.7 ng/mL (0.0-4.0) 03/21/19 05:50 CK-MB (CK-2) Rel Index 2.5 (0-4) 03/21/19 05:50 < 0.010 ng/mL (0.00-0.029) 03/21/19 05:50 Yellow (Yellow) 03/20/19 16:22 Slightly-cloudy (Clear) 03/20/19 16:22 5.0 (5.0-7.0) 03/20/19 16:22 Ur Specific [place] 1.018 (1.003-1.030) 03/20/19 16:22 <15 mg/dl mg/dL (Negative) 03/20/19 16:22 Neg mg/dL (Negative) 03/20/19 16:22 Neg mg/dL (Negative) 03/20/19 16:22 Neg (Negative) 03/20/19 16:22 Neg (Negative) 03/20/19 16:22 Neg (Negative) 03/20/19 16:22 < 2.0 mg/dL (<2.0) 03/20/19 16:22 Ur Leukocyte Esterase Neg (Negative) 03/20/19 16:22 1.0 /HPF (0.0-6.0) 03/20/19 16:22 < 1.0 /HPF (0.0-6.0) 03/20/19 16:22 2+ /HPF (Negative) 03/20/19 16:22 Few /HPF 03/20/19 16:22 Active Medications - Current Medications Current Medications: Generic Name Dose Route Start Last Admin Trade Name Freq PRN Reason Stop Dose Admin Amlodipine Besylate 10 mg 03/22/19 10:00 03/23/19 10:39 Norvasc PO 10 mg DAILY JULIEN Administration Aspirin 325 mg 03/21/19 10:00 03/23/19 10:39 Aspirin PO 325 mg QDAY JULIEN Administration Atorvastatin Calcium 80 mg 03/21/19 22:00 03/22/19 22:08 Lipitor PO 80 mg QHS JULIEN Administration Clonidine HCl 0.1 mg 03/21/19 22:00 03/22/19 22:07 Catapres PO 0.1 mg QHS JULIEN Administration Dextrose 50 ml 03/20/19 23:20 D50w (25gm) Syringe IV PRN PRN Hypoglycemia Hydrochlorothiazide 25 mg 03/22/19 10:00 03/23/19 10:39 Hctz PO 25 mg QDAY JULIEN Administration Insulin Human Regular 0 units 03/21/19 11:30 03/23/19 08:39 Humulin R SUB-Q Not Given ACHS [facility] Protocol Lisinopril 40 mg 03/22/19 10:00 03/23/19 10:39 Zestril PO 40 mg QDAY JULIEN Administration Metformin HCl 500 mg 03/21/19 22:00 03/23/19 10:39 Glucophage PO 500 mg BID JULIEN Administration Nutrition/Malnutrition Assess - Dietary Evaluation Nutrition/Malnutrition Findings: Nutrition Notes Start: 03/21/19 15:44 Freq: Status: Active Protocol: Document 03/21/19 15:44 RM (Rec: 03/21/19 15:50 RM [id number]) Nutrition Notes 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 Pt confused at time of visit. Per tech pt is eating bites of her meals. No A1c in record. Pt not appropriate for diet education at this time. Burn Absent Trauma Absent Minimum of two criteria No #1 Nutrition Diagnosis Inadequate oral intake Etiology AMS As Evidenced by Signs and Symptoms pt tech statement that pt eats bites of her meals Is patient on ventilator? No Is Patient Ambulatory and/or Out of Bed No REE-([facility]-confined to bed) 0710.470 Calculation Used for Recommendations [facility] Additional Notes Protein Needs: 85-101g (1-1.2g /kg) Fluid Needs: 1 ml/kcal Nutrition Intervention Change Diet Order: Continue current Add Supplement/Snack (indicate name/kcal Glucerna 1 daily /protein ) Provides kCal: 220 Provides Protein (gm) 10 Goal #1 Meet at least 75% of calorie and protein needs via PO and ONS intakes Anticipated Discharge Needs: Unable to determine at this time Follow-Up By: 03/23/19 Additional Comments Follow for PO and ONS intakes, need for DM diet education
[2019-03-23 14:02] LABS: Chol/HDL Ratio 4.28 %
--- NOTE | 2019-03-23 15:50 | Magnetic Resonance Report ---
MRI BRAIN WITHOUT CONTRAST INDICATION / CLINICAL INFORMATION: CVA. TECHNIQUE: Multiplanar, multisequence MR images of the brain were obtained. COMPARISON: CT scan from 03/20/2019 FINDINGS: BRAIN / INTRACRANIAL CONTENTS: Abnormal MRI scan. Restrictive diffusion seen in the left basal gangli a (caudate foramen, posterior insular cortex right superior temporal gyrus. This infarction must be m ore than 6 hours old (increased FLAIR and T2 signal intensities but less than 3 days old (low ADC maurizio ues). In the gradient echo images, I do not see susceptibility changes. This would exclude hemorrhagi c transformation. Encephalomalacia is seen in the left temporoparietal occipital border zone and right parietal border zone. Cortical involution is seen. Subtle chronic ischemic changes are seen in the skye. I do not see focal lesion in the cerebral lump. Mild volume loss is seen in the cerebellar hemispheres. CRANIOCERVICAL JUNCTION: No significant abnormality. VASCULAR FLOW-VOIDS: Right internal carotid artery is occluded from skull base up to terminus. Normal flow signal is seen in the left internal carotid artery and in the basilar artery. ORBITS: No significant abnormality of visualized orbits. SINUSES / MASTOIDS: Mucosal thickening is seen in the right posterior ethmoid air cells. ADDITIONAL FINDINGS: None. IMPRESSION: Subacute infarction in the right middle cerebral artery territory Encephalomalacia in both cerebral hemispheres. Signer Name: Benito Moreno MD Signed: 03/23/2019 3:45 PM Workstation Name: [id number]
--- NOTE | 2019-03-23 19:21 | Vascular Lab Report ---
VL carotid duplex BILAT INDICATION / CLINICAL INFORMATION: CVA. COMPARISON: None available. FINDINGS: Extensive plaque formation is demonstrated in the right internal carotid artery. Velocity measurement s in this right internal carotid are significantly reduced. Slightly less prominent plaque formation is demonstrated in the left bifurcation, and velocity measur ements and waveform analysis indicate 50-70% stenosis of the left internal carotid, according to Nasc et criteria. Normal antegrade flow is demonstrated in both vertebral arteries. IMPRESSION: 1. Markedly reduced velocity of the right internal carotid artery suggests very high-grade stenosis o f the more distal internal carotid. 2. 50-70% stenosis of the left internal carotid. Signer Name: Isiah Schwarz MD Signed: 03/23/2019 7:17 PM Workstation Name: [id number]
[2019-03-23] MEDS: cloNIDine 0.1 MG TAB PO SCH (22:03)
[2019-03-24] MEDS: ASPIRIN 325 MG TAB PO SCH (10:20)
[2019-03-24] MEDS: LISINOPRIL 40 MG TAB PO SCH (10:20)
[2019-03-24] MEDS: INSULIN REGULAR, HUMAN 100 UNITS/1 ML SUB-Q SCH ×4 (10:21→21:36)
[2019-03-24] MEDS: metFORMIN 500 MG TAB PO SCH ×2 (10:21→21:36)
[2019-03-24] MEDS: amLODIPine 10 MG TAB PO SCH (10:21)
[2019-03-24] MEDS: hydroCHLOROthiazide 25 MG TAB PO SCH (10:21)
--- NOTE | 2019-03-24 12:17 | Progress Note ---
Assessment and Plan Assessment and plan: Patient is a 73 yo AA woman with a history of type 2 DM and hypertension and CVA with left sided deficits who presents with AMS with confusion and worsening left sided weakness on 03/20/19. By the time MRI was done, acute stroke who listed as subacute is >72 hours by Radiologist stroke timeline. * Brain MRI IMPRESSION: Subacute infarction in the right middle cerebral artery territory Encephalomalacia in both cerebral hemispheres. Acute ischemic CVA. Treat with asa/statin Multi-infarct dementia. Neurology following. Hypertension. Cont. antihypertensive medications. Diabetes mellitus type II. Continue Accu-Cheks and sliding scale insulin. Resumed metformin. Generalized weakness. PT/OT eval recommended SARAH Disposition. SARAH, d/w son Constantin Amanda at bedside History Interval history: Patient was seen and examined. Follow-up on current diagnosis of CVA. No overnight events reported to me. Patient denies any chest pain, shortness breath, nausea/vomiting or severe headaches. Imaging, nursing note, chart, labs and old chart reviewed. Discussed with patient. Hospitalist Physical - Physical exam Narrative exam: Gen: WDWN, NAD, Awake, Alert, Orientated x 2 HEENT: NCAT, EOMI, PERRL, OP Clear Neck: supple, no adenopathy, no thyromegaly, no JVD CVS/Heart: RRR, normal S1S2, pulses present bilaterally Chest/Lungs: CTA B, Symmetrical chest expansion, good air entry bilaterally GI/Abdomen: soft, NTND, good bowel sounds, no guarding or rebound /Bladder: no suprapubic tenderness, no CVA or paraspinal tenderness Extermity/Skin: no c/c/e, no obvious rash MSK: FROM x 3 with left hemiparesis Neuro: CN 2-12 grossly intact, no new focal deficits Psych: calm but confused - Constitutional Vitals: Temp Pulse Resp BP Pulse Ox 98.4 F 68 18 121/59 99 03/24/19 08:05 03/24/19 10:21 03/24/19 08:05 03/24/19 10:21 03/24/19 05:01 General appearance: Present: no acute distress, well-nourished Results - Labs CBC & Chem 7: 03/23/19 07:05 03/23/19 07:05 Labs: Laboratory Last Values WBC 10.0 K/mm3 (4.5-11.0) 03/23/19 07:05 RBC 4.29 M/mm3 (3.65-5.03) 03/23/19 07:05 Hgb 11.9 gm/dl (10.1-14.3) 03/23/19 07:05 Hct 35.7 % (30.3-42.9) 03/23/19 07:05 MCV 83 fl (79-97) 03/23/19 07:05 MCH 28 pg (28-32) 03/23/19 07:05 MCHC 34 % (30-34) 03/23/19 07:05 RDW 13.5 % (13.2-15.2) 03/23/19 07:05 Plt Count 211 K/mm3 (140-440) 03/23/19 07:05 Lymph % (Auto) 27.7 % (13.4-35.0) 03/23/19 07:05 [place] % (Auto) 8.9 % (0.0-7.3) H 03/23/19 07:05 Eos % (Auto) 0.0 % (0.0-4.3) 03/23/19 07:05 Baso % (Auto) 0.6 % (0.0-1.8) 03/23/19 07:05 Lymph # 2.8 K/mm3 (1.2-5.4) 03/23/19 07:05 [place] # 0.9 K/mm3 (0.0-0.8) H 03/23/19 07:05 Eos # 0.0 K/mm3 (0.0-0.4) 03/23/19 07:05 Baso # 0.1 K/mm3 (0.0-0.1) 03/23/19 07:05 Seg Neutrophils % 62.8 % (40.0-70.0) 03/23/19 07:05 Seg Neutrophils # 6.3 K/mm3 (1.8-7.7) 03/23/19 07:05 Sodium 140 mmol/L (137-145) 03/23/19 07:05 Potassium 3.8 mmol/L (3.6-5.0) 03/23/19 07:05 Chloride 102.2 mmol/L (98-107) 03/23/19 07:05 Carbon Dioxide 24 mmol/L (22-30) 03/23/19 07:05 18 mmol/L 03/23/19 07:05 BUN 21 mg/dL (7-17) H 03/23/19 07:05 0.8 mg/dL (0.7-1.2) 03/23/19 07:05 Estimated GFR > 60 ml/min 03/23/19 07:05 26 % 03/23/19 07:05 Glucose 130 mg/dL (65-100) H 03/23/19 07:05 POC Glucose 152 (70-105) H 03/24/19 12:12 Calcium 9.2 mg/dL (8.4-10.2) 03/23/19 07:05 143 units/L (30-135) H 03/21/19 05:50 CK-MB (CK-2) 3.7 ng/mL (0.0-4.0) 03/21/19 05:50 CK-MB (CK-2) Rel Index 2.5 (0-4) 03/21/19 05:50 < 0.010 ng/mL (0.00-0.029) 03/21/19 05:50 Triglycerides 93 mg/dL (2-149) 03/23/19 07:05 Cholesterol 210 mg/dL (50-199) H 03/23/19 07:05 143 mg/dL (50-130) H 03/23/19 07:05 49 mg/dL (40-59) 03/23/19 07:05 4.28 % 03/23/19 07:05 Yellow (Yellow) 03/20/19 16:22 Slightly-cloudy (Clear) 03/20/19 16:22 5.0 (5.0-7.0) 03/20/19 16:22 Ur Specific [place] 1.018 (1.003-1.030) 03/20/19 16:22 <15 mg/dl mg/dL (Negative) 03/20/19 16:22 Neg mg/dL (Negative) 03/20/19 16:22 Neg mg/dL (Negative) 03/20/19 16:22 Neg (Negative) 03/20/19 16:22 Neg (Negative) 03/20/19 16:22 Neg (Negative) 03/20/19 16:22 < 2.0 mg/dL (<2.0) 03/20/19 16:22 Ur Leukocyte Esterase Neg (Negative) 03/20/19 16:22 1.0 /HPF (0.0-6.0) 03/20/19 16:22 < 1.0 /HPF (0.0-6.0) 03/20/19 16:22 2+ /HPF (Negative) 03/20/19 16:22 Few /HPF 03/20/19 16:22 Active Medications - Current Medications Current Medications: Generic Name Dose Route Start Last Admin Trade Name Freq PRN Reason Stop Dose Admin Amlodipine Besylate 10 mg 03/22/19 10:00 03/24/19 10:21 Norvasc PO 10 mg DAILY JULIEN Administration Aspirin 325 mg 03/21/19 10:00 03/24/19 10:20 Aspirin PO 325 mg QDAY JULIEN Administration Atorvastatin Calcium 80 mg 03/21/19 22:00 03/23/19 22:03 Lipitor PO 80 mg QHS JULIEN Administration Clonidine HCl 0.1 mg 03/21/19 22:00 03/23/19 22:03 Catapres PO 0.1 mg QHS JULIEN Administration Dextrose 50 ml 03/20/19 23:20 D50w (25gm) Syringe IV PRN PRN Hypoglycemia Hydrochlorothiazide 25 mg 03/22/19 10:00 03/24/19 10:21 Hctz PO 25 mg QDAY JULIEN Administration Insulin Human Regular 0 units 03/21/19 11:30 03/24/19 10:21 Humulin R SUB-Q Not Given ACHS [facility] Protocol Lisinopril 40 mg 03/22/19 10:00 03/24/19 10:20 Zestril PO 40 mg QDAY JULIEN Administration Metformin HCl 500 mg 03/21/19 22:00 03/24/19 10:21 Glucophage PO 500 mg BID JULIEN Administration Nutrition/Malnutrition Assess - Dietary Evaluation Nutrition/Malnutrition Findings: Nutrition Notes Start: 03/21/19 15:44 Freq: Status: Active Protocol: Document 03/23/19 15:37 RM (Rec: 03/23/19 15:47 RM [id number]) Nutrition Notes Initial or Follow up Reassessment Current Diagnosis Diabetes,Hypertension,Stroke Other Pertinent Diagnosis AMS, Dementia Current Diet Cardiac w/Glucerna 1 daily Labs/Tests BG 130, POC 140 Pertinent Medications Hydrochlorothiazide Height 5 ft 9 in Weight 82 kg [place] Body Weight (kg) 65.90 BMI 26.6 Subjective/Other Information Pt and pt son in room at time of visit. Pt son stated that pt eats 50% to 100% of her meals and drinks the Glucerna. No A1c in record. Pt son stated that pt DM has improved and that pt was told she is now pre diabetic. DM diet education not necessary at this time. Percent of energy/protein needs met: 100%/85% Burn Absent Trauma Absent Minimum of two criteria No #1 Nutrition Diagnosis Inadequate oral intake As Evidenced by Signs and Symptoms pt meeting 100% of calorie and 85% of protein needs Diagnosis Progress(for reassessment Resolved documentation) Is patient on ventilator? No Is Patient Ambulatory and/or Out of Bed No REE-([facility]-confined to bed) [phone] Calculation Used for Recommendations [facility] Additional Notes Protein Needs: 82-98g (1-1.2g/ kg) Fluid Needs: 1 ml/kcal Nutrition Intervention Change Diet Order: Continue current Add Supplement/Snack (indicate name/kcal Glucerna 1 daily /protein ) Provides kCal: 220 Provides Protein (gm) 10 Goal #1 Continue to meet at least 75% of calorie and protein needs via PO and ONS intakes Anticipated Discharge Needs: Cardiac diet + Glucerna 1 daily Follow-Up By: 03/30/19 Additional Comments Follow for PO and ONS intakes
[2019-03-24] MEDS: cloNIDine 0.1 MG TAB PO SCH (21:36)
--- NOTE | 2019-03-25 07:42 | Progress Note ---
Assessment and Plan Assessment and plan: Patient is a 73 yo AA woman with a history of type 2 DM and hypertension and CVA with left sided deficits who presents with AMS with confusion and worsening left sided weakness on 03/20/19. By the time MRI was done, acute stroke who listed as subacute is >72 hours by Radiologist stroke timeline. * Brain MRI IMPRESSION: Subacute infarction in the right middle cerebral artery territory Encephalomalacia in both cerebral hemispheres. Acute ischemic CVA. Treat with asa/statin Multi-infarct dementia. Neurology following. Hypertension. Cont. antihypertensive medications. Diabetes mellitus type II. Continue Accu-Cheks and sliding scale insulin. Resumed metformin. Generalized weakness. PT/OT eval recommended SARAH Disposition. d/w son Constantin Amanda at bedside, changed mind about SNF History Interval history: Patient was seen and examined. Follow-up on current diagnosis of CVA. No overnight events reported to me. Patient denies any chest pain, shortness breath, nausea/vomiting or severe headaches. Imaging, nursing note, chart, labs and old chart reviewed. Discussed with patient. Hospitalist Physical - Physical exam Narrative exam: Gen: WDWN, NAD, Awake, Alert, Orientated x 2 HEENT: NCAT, EOMI, PERRL, OP Clear Neck: supple, no adenopathy, no thyromegaly, no JVD CVS/Heart: RRR, normal S1S2, pulses present bilaterally Chest/Lungs: CTA B, Symmetrical chest expansion, good air entry bilaterally GI/Abdomen: soft, NTND, good bowel sounds, no guarding or rebound /Bladder: no suprapubic tenderness, no CVA or paraspinal tenderness Extermity/Skin: no c/c/e, no obvious rash MSK: FROM x 3 with left hemiparesis Neuro: CN 2-12 grossly intact, no new focal deficits Psych: calm but confused - Constitutional Vitals: Temp Pulse Resp BP Pulse Ox 98.8 F 82 18 117/69 100 03/25/19 03:55 03/25/19 03:55 03/25/19 04:00 03/25/19 03:55 03/25/19 03:55 General appearance: Present: no acute distress, well-nourished Results - Labs CBC & Chem 7: 03/23/19 07:05 03/23/19 07:05 Labs: Laboratory Last Values WBC 10.0 K/mm3 (4.5-11.0) 03/23/19 07:05 RBC 4.29 M/mm3 (3.65-5.03) 03/23/19 07:05 Hgb 11.9 gm/dl (10.1-14.3) 03/23/19 07:05 Hct 35.7 % (30.3-42.9) 03/23/19 07:05 MCV 83 fl (79-97) 03/23/19 07:05 MCH 28 pg (28-32) 03/23/19 07:05 MCHC 34 % (30-34) 03/23/19 07:05 RDW 13.5 % (13.2-15.2) 03/23/19 07:05 Plt Count 211 K/mm3 (140-440) 03/23/19 07:05 Lymph % (Auto) 27.7 % (13.4-35.0) 03/23/19 07:05 [place] % (Auto) 8.9 % (0.0-7.3) H 03/23/19 07:05 Eos % (Auto) 0.0 % (0.0-4.3) 03/23/19 07:05 Baso % (Auto) 0.6 % (0.0-1.8) 03/23/19 07:05 Lymph # 2.8 K/mm3 (1.2-5.4) 03/23/19 07:05 [place] # 0.9 K/mm3 (0.0-0.8) H 03/23/19 07:05 Eos # 0.0 K/mm3 (0.0-0.4) 03/23/19 07:05 Baso # 0.1 K/mm3 (0.0-0.1) 03/23/19 07:05 Seg Neutrophils % 62.8 % (40.0-70.0) 03/23/19 07:05 Seg Neutrophils # 6.3 K/mm3 (1.8-7.7) 03/23/19 07:05 Sodium 140 mmol/L (137-145) 03/23/19 07:05 Potassium 3.8 mmol/L (3.6-5.0) 03/23/19 07:05 Chloride 102.2 mmol/L (98-107) 03/23/19 07:05 Carbon Dioxide 24 mmol/L (22-30) 03/23/19 07:05 18 mmol/L 03/23/19 07:05 BUN 21 mg/dL (7-17) H 03/23/19 07:05 0.8 mg/dL (0.7-1.2) 03/23/19 07:05 Estimated GFR > 60 ml/min 03/23/19 07:05 26 % 03/23/19 07:05 Glucose 130 mg/dL (65-100) H 03/23/19 07:05 POC Glucose 131 (70-105) H 03/24/19 21:11 Calcium 9.2 mg/dL (8.4-10.2) 03/23/19 07:05 143 units/L (30-135) H 03/21/19 05:50 CK-MB (CK-2) 3.7 ng/mL (0.0-4.0) 03/21/19 05:50 CK-MB (CK-2) Rel Index 2.5 (0-4) 03/21/19 05:50 < 0.010 ng/mL (0.00-0.029) 03/21/19 05:50 Triglycerides 93 mg/dL (2-149) 03/23/19 07:05 Cholesterol 210 mg/dL (50-199) H 03/23/19 07:05 143 mg/dL (50-130) H 03/23/19 07:05 49 mg/dL (40-59) 03/23/19 07:05 4.28 % 03/23/19 07:05 Yellow (Yellow) 03/20/19 16:22 Slightly-cloudy (Clear) 03/20/19 16:22 5.0 (5.0-7.0) 03/20/19 16:22 Ur Specific [place] 1.018 (1.003-1.030) 03/20/19 16:22 <15 mg/dl mg/dL (Negative) 03/20/19 16:22 Neg mg/dL (Negative) 03/20/19 16:22 Neg mg/dL (Negative) 03/20/19 16:22 Neg (Negative) 03/20/19 16:22 Neg (Negative) 03/20/19 16:22 Neg (Negative) 03/20/19 16:22 < 2.0 mg/dL (<2.0) 03/20/19 16:22 Ur Leukocyte Esterase Neg (Negative) 03/20/19 16:22 1.0 /HPF (0.0-6.0) 03/20/19 16:22 < 1.0 /HPF (0.0-6.0) 03/20/19 16:22 2+ /HPF (Negative) 03/20/19 16:22 Few /HPF 03/20/19 16:22 Active Medications - Current Medications Current Medications: Generic Name Dose Route Start Last Admin Trade Name Freq PRN Reason Stop Dose Admin Amlodipine Besylate 10 mg 03/22/19 10:00 03/24/19 10:21 Norvasc PO 10 mg DAILY JULIEN Administration Aspirin 325 mg 03/21/19 10:00 03/24/19 10:20 Aspirin PO 325 mg QDAY JULIEN Administration Atorvastatin Calcium 80 mg 03/21/19 22:00 03/24/19 21:36 Lipitor PO 80 mg QHS JULIEN Administration Clonidine HCl 0.1 mg 03/21/19 22:00 03/24/19 21:36 Catapres PO 0.1 mg QHS JULIEN Administration Dextrose 50 ml 03/20/19 23:20 D50w (25gm) Syringe IV PRN PRN Hypoglycemia Hydrochlorothiazide 25 mg 03/22/19 10:00 03/24/19 10:21 Hctz PO 25 mg QDAY JULIEN Administration Insulin Human Regular 0 units 03/21/19 11:30 03/24/19 21:36 Humulin R SUB-Q Not Given ACHS [facility] Protocol Lisinopril 40 mg 03/22/19 10:00 03/24/19 10:20 Zestril PO 40 mg QDAY JULIEN Administration Metformin HCl 500 mg 03/21/19 22:00 03/24/19 21:36 Glucophage PO 500 mg BID JULIEN Administration Nutrition/Malnutrition Assess - Dietary Evaluation Nutrition/Malnutrition Findings: Nutrition Notes Start: 03/21/19 15:44 Freq: Status: Active Protocol: Document 03/23/19 15:37 RM (Rec: 03/23/19 15:47 RM [id number]) Nutrition Notes Initial or Follow up Reassessment Current Diagnosis Diabetes,Hypertension,Stroke Other Pertinent Diagnosis AMS, Dementia Current Diet Cardiac w/Glucerna 1 daily Labs/Tests BG 130, POC 140 Pertinent Medications Hydrochlorothiazide Height 5 ft 9 in Weight 82 kg [place] Body Weight (kg) 65.90 BMI 26.6 Subjective/Other Information Pt and pt son in room at time of visit. Pt son stated that pt eats 50% to 100% of her meals and drinks the Glucerna. No A1c in record. Pt son stated that pt DM has improved and that pt was told she is now pre diabetic. DM diet education not necessary at this time. Percent of energy/protein needs met: 100%/85% Burn Absent Trauma Absent Minimum of two criteria No #1 Nutrition Diagnosis Inadequate oral intake As Evidenced by Signs and Symptoms pt meeting 100% of calorie and 85% of protein needs Diagnosis Progress(for reassessment Resolved documentation) Is patient on ventilator? No Is Patient Ambulatory and/or Out of Bed No REE-([facility] [place]-confined to bed) [phone] Calculation Used for Recommendations [facility] Additional Notes Protein Needs: 82-98g (1-1.2g/ kg) Fluid Needs: 1 ml/kcal Nutrition Intervention Change Diet Order: Continue current Add Supplement/Snack (indicate name/kcal Glucerna 1 daily /protein ) Provides kCal: 220 Provides Protein (gm) 10 Goal #1 Continue to meet at least 75% of calorie and protein needs via PO and ONS intakes Anticipated Discharge Needs: Cardiac diet + Glucerna 1 daily Follow-Up By: 03/30/19 Additional Comments Follow for PO and ONS intakes
[2019-03-25] MEDS: INSULIN REGULAR, HUMAN 100 UNITS/1 ML SUB-Q SCH ×4 (08:36→21:22)
[2019-03-25] MEDS: amLODIPine 10 MG TAB PO SCH (09:45)
[2019-03-25] MEDS: hydroCHLOROthiazide 25 MG TAB PO SCH (09:45)
[2019-03-25] MEDS: ASPIRIN 325 MG TAB PO SCH (09:45)
[2019-03-25] MEDS: metFORMIN 500 MG TAB PO SCH ×2 (09:45→21:22)
[2019-03-25] MEDS: LISINOPRIL 40 MG TAB PO SCH (09:45)
[2019-03-25] MEDS ORDERED: LOPERAMIDE 2 MG CAP PO PRN (11:31)
[2019-03-25] MEDS: D5W/0.45% NACL 1,000 ML IV SCH (12:58)
--- NOTE | 2019-03-25 12:59 | Consultation ---
History of Present Illness Consult date: 03/25/19 History of present illness: spoke to family for long period and they were aware of prior small strokes and altered cognition recently she was talking lss and lss degree of interactioning with family advised them I thought this was due to [place] stroke since altered cognition was quit suuden I did look at the Xray of the foot nothing obvious but fomal report is awaited- nothing major to address Medications and Allergies Allergies Allergy/AdvReac Type Severity Reaction Status Date / Time Penicillins Allergy Unknown Verified 05/12/13 12:57 Home Medications Medication Instructions Recorded Confirmed Last Taken Type amLODIPine [Norvasc] 10 mg PO DAILY #90 tab 05/12/13 03/20/19 03/19/19 Rx Lisinopril [Zestril TAB] 40 mg PO QDAY 03/20/19 03/20/19 03/19/19 History cloNIDine [Catapres] 0.1 mg PO QHS 03/20/19 03/20/19 03/19/19 History hydroCHLOROthiazide [HCTZ] 25 mg PO QDAY 03/20/19 03/20/19 03/19/19 History metFORMIN [Glucophage] 500 mg PO BID 03/20/19 03/20/19 03/19/19 History Active Meds: Active Medications Amlodipine Besylate (Norvasc) 10 mg PO DAILY ON LICENSE OF [facility] Last Admin: 03/25/19 09:45 Dose: 10 mg Documented by: Aspirin (Aspirin) 325 mg PO QDAY ON LICENSE OF [facility] Last Admin: 03/25/19 09:45 Dose: 325 mg Documented by: Atorvastatin Calcium (Lipitor) 80 mg PO QHS ON LICENSE OF [facility] Last Admin: 03/24/19 21:36 Dose: 80 mg Documented by: Clonidine HCl (Catapres) 0.1 mg PO QHS ON LICENSE OF [facility] Last Admin: 03/24/19 21:36 Dose: 0.1 mg Documented by: Dextrose (D50w (25gm) Syringe) 50 ml IV PRN PRN PRN Reason: Hypoglycemia Hydrochlorothiazide (Hctz) 25 mg PO QDAY ON LICENSE OF [facility] Last Admin: 03/25/19 09:45 Dose: 25 mg Documented by: Dextrose/Sodium Chloride (D5/0.45ns) 1,000 mls @ 100 mls/hr IV DIRECT ON LICENSE OF [facility] Insulin Human Regular (Humulin R) 0 units SUB-Q [facility]; Protocol Last Admin: 03/25/19 11:18 Dose: Not Given Documented by: Lisinopril (Zestril) 40 mg PO QDAY ON LICENSE OF [facility] Last Admin: 03/25/19 09:45 Dose: 40 mg Documented by: Loperamide HCl (Imodium) 2 mg PO Q2H PRN PRN Reason: Diarrhea Metformin HCl (Glucophage) 500 mg PO BID ON LICENSE OF [facility] Last Admin: 03/25/19 09:45 Dose: 500 mg Documented by: Physical Examination - Vital Signs Vital Signs: Vital Signs Pulse Resp BP Pulse Ox 75 16 138/60 99 03/20/19 16:10 03/20/19 16:10 03/20/19 16:10 03/20/19 16:10 Results - Laboratory Findings CBC and BMP: 03/23/19 07:05 03/23/19 07:05 Abnormal Lab Findings: Abnormal Labs 03/20/19 03/20/19 03/20/19 16:20 16:20 16:33 [place] % (Auto) [place] # Seg Neutrophils % 78.4 H Carbon Dioxide 20 L BUN 22 H Glucose POC Glucose 107 H Total Creatine Kinase Cholesterol LDL Cholesterol Direct 03/21/19 03/21/19 03/21/19 01:38 04:56 05:50 [place] % (Auto) [place] # Seg Neutrophils % Carbon Dioxide BUN Glucose POC Glucose 131 H 150 H Total Creatine Kinase 143 H Cholesterol LDL Cholesterol Direct 03/21/19 03/21/19 03/21/19 08:00 12:54 17:49 [place] % (Auto) [place] # Seg Neutrophils % Carbon Dioxide BUN Glucose POC Glucose 128 H 160 H 158 H Total Creatine Kinase Cholesterol LDL Cholesterol Direct 03/21/19 03/22/19 03/22/19 20:47 08:01 12:42 [place] % (Auto) [place] # Seg Neutrophils % Carbon Dioxide BUN Glucose POC Glucose 150 H 130 H 126 H Total Creatine Kinase Cholesterol LDL Cholesterol Direct 03/22/19 03/22/19 03/23/19 17:05 21:43 07:05 [place] % (Auto) 8.9 H [place] # 0.9 H Seg Neutrophils % Carbon Dioxide BUN Glucose POC Glucose 115 H 122 H Total Creatine Kinase Cholesterol LDL Cholesterol Direct 03/23/19 03/23/19 03/23/19 07:05 07:05 08:10 [place] % (Auto) [place] # Seg Neutrophils % Carbon Dioxide BUN 21 H Glucose 130 H POC Glucose 140 H Total Creatine Kinase Cholesterol 210 H LDL Cholesterol Direct 143 H 03/23/19 03/23/19 03/23/19 12:48 17:53 21:31 [place] % (Auto) [place] # Seg Neutrophils % Carbon Dioxide BUN Glucose POC Glucose 122 H 124 H 164 H Total Creatine Kinase Cholesterol LDL Cholesterol Direct 03/24/19 03/24/19 03/24/19 08:09 12:12 16:20 [place] % (Auto) [place] # Seg Neutrophils % Carbon Dioxide BUN Glucose POC Glucose 161 H 152 H 132 H Total Creatine Kinase Cholesterol LDL Cholesterol Direct 03/24/19 03/25/19 03/25/19 21:11 07:48 11:15 [place] % (Auto) [place] # Seg Neutrophils % Carbon Dioxide BUN Glucose POC Glucose 131 H 149 H 139 H Total Creatine Kinase Cholesterol LDL Cholesterol Direct
--- NOTE | 2019-03-25 13:01 | XRay Report ---
LEFT FOOT HISTORY: Pain. COMPARISON: None. TECHNIQUE: 3 views of the left foot were obtained. FINDINGS: Bones: Diffuse osteopenia. The bones of the foot are intact with no fracture. However, there are corwin picious lucencies in the distal tibia and fibula 2 views. Joint spaces: Maintained. Soft tissues: No significant abnormality. Additional findings: None. IMPRESSION: 1. No foot fracture. However, possible ankle fractures. Recommend 3 x-ray views of the left ankle. Signer Name: Rah Staton MD Signed: 03/25/2019 12:57 PM Workstation Name: [id number]
--- NOTE | 2019-03-25 13:06 | XRay Report ---
ABDOMEN FLAT AND UPRIGHT HISTORY: n/v COMPARISON: None. TECHNIQUE: Supine and upright radiographs of the abdomen obtained. FINDINGS Bowel: Nonobstructive bowel pattern. No abnormal air-fluid level. No free intraperitoneal air. Calcifications:No significant abnormal calcifications. Osseous Structures: Degenerative changes in the spine. Additional findings: None. IMPRESSION: 1. . Negative abdomen. Signer Name: Rah Staton MD Signed: 03/25/2019 1:02 PM Workstation Name: [id number]
--- NOTE | 2019-03-25 16:02 | Discharge Summary ---
Providers - Providers Date of Admission: 03/20/19 23:11 Attending physician: CALEB GUAJARDO 03/21/19 06:00 Consult to Physician [CONS] Routine Comment: Consulting Provider: SLOAN BAUER Physician Instructions: Reason For Exam: CVA WITH WEAKNESS Physical Therapy Evaluation and Treat [CONS] Routine Comment: Reason For Exam: CVA WITH WEAKNESS 03/23/19 10:53 Occupational Therapy Evaluate and Treat [CONS] Routine Comment: Reason For Exam: Weakness 03/25/19 09:56 Speech Therapy Evaluation and Treat [CONS] Routine Reason For Exam: difficulty swollowing [facility] Hospital[facility] Condition: Stable Hospital course: Patient is a 73 yo AA woman with a history of type 2 DM and hypertension and CVA with left sided deficits who presents with AMS with confusion and worsening left sided weakness on 03/20/19. By the time MRI was done, acute stroke who listed as subacute is >72 hours by Radiologist stroke timeline. * Brain MRI IMPRESSION: Subacute infarction in the right middle cerebral artery territory Encephalomalacia in both cerebral hemispheres. Acute ischemic CVA. Treat with asa/statin Multi-infarct dementia. Neurology following. Hypertension. Cont. antihypertensive medications. Diabetes mellitus type II. Continue Accu-Cheks and sliding scale insulin. Resumed metformin. Generalized weakness. PT/OT eval recommended SARAH Left ankle fracture s/p fall at home: Ortho evaluate, no plans for surgery so far Disposition. SNF placement Disposition: DC/[place]-03 SNF [facility] Time spent for discharge: 33 min Core Measure Documentation - Palliative Care Palliative Care/ Comfort Measures: Not Applicable - Core Measures Any of the following diagnoses?: stroke - VTE Discharge Requirements Deep Vein Thrombosis/Pulmonary Embolism Present on Admission: No Has pt received <5 days of overlap therapy or INR<2.0: No Anticoagulant overlap therapy prescribed at discharge: No Contraindication No Overlap Therapy order at DC: Not Indicated - Stroke Discharge Requirements Statin for LDL = or >70 mg/dl on DC: Yes Anticoag for atrial fib/atrial flutter: No Reason for no anticoag for AF/F on DC: Not Indicated Antithrombotic for ischemic stroke: Yes Exam - Physical Exam Narrative exam: Gen: WDWN, NAD, Awake, Alert, Orientated x 2 HEENT: NCAT, EOMI, PERRL, OP Clear Neck: supple, no adenopathy, no thyromegaly, no JVD CVS/Heart: RRR, normal S1S2, pulses present bilaterally Chest/Lungs: CTA B, Symmetrical chest expansion, good air entry bilaterally GI/Abdomen: soft, NTND, good bowel sounds, no guarding or rebound /Bladder: no suprapubic tenderness, no CVA or paraspinal tenderness Extermity/Skin: no c/c/e, no obvious rash MSK: FROM x 3 with left hemiparesis Neuro: CN 2-12 grossly intact, no new focal deficits Psych: calm but confused - Constitutional Vitals: Temp Pulse Resp BP Pulse Ox 99.3 F 73 18 115/53 98 03/25/19 08:14 03/25/19 11:32 03/25/19 08:14 03/25/19 11:32 03/25/19 11:32 Plan Activity: up only with assistance, fall precautions, other (no strenous activity unless cleared by PCP) Weight Bearing Status: Touch Down Weight Bearing (left ankle per Ortho with walking boot) Diet: low salt [facility] [Primary Care Provider] - 3-5 Days SLOAN BAUER MD [Staff Physician] - 7 Days CHRISTOPHER LLAMAS MD [Staff Physician] - 7 Days Prescriptions: cloNIDine [Catapres] 0.1 mg PO QHS #30 tablet AtorvaSTATin [Lipitor] 2 tab PO QHS #60 tablet Aspirin 325 mg PO QDAY #30 tablet metFORMIN [Glucophage] 500 mg PO BID #60 tablet amLODIPine [Norvasc] 10 mg PO DAILY #90 tab Lisinopril [Zestril TAB] 40 mg PO QDAY #30 tablet
--- NOTE | 2019-03-25 17:23 | XRay Report ---
LEFT ANKLE 3 VIEWS INDICATION: left ankle pain. COMPARISON: Foot radiographs earlier today. FINDINGS: There is a mildly displaced oblique spiral-type fracture through the distal fibular diaphysis a coupl e centimeters above the level of the ankle mortise. There is a minimally displaced transverse fractur e through the medial malleolus. No significant ankle mortise widening is seen. There is diffuse, subjective osteopenia. Mild osteoarthrosis is noted about the ankle. There is mild soft tissue swelling. IMPRESSION: 1. Distal fibular and medial malleolus fractures as above. 2. Diffuse osteopenia. Signer Name: Amol Bernal MD Signed: 03/25/2019 5:19 PM Workstation Name: [id number]
[2019-03-25] MEDS: cloNIDine 0.1 MG TAB PO SCH (21:22)
[2019-03-26] MEDS: D5W/0.45% NACL 1,000 ML IV SCH ×3 (03:34→23:19)
[2019-03-26] MEDS: amLODIPine 10 MG TAB PO SCH (09:08)
[2019-03-26] MEDS: ASPIRIN 325 MG TAB PO SCH (09:09)
[2019-03-26] MEDS: metFORMIN 500 MG TAB PO SCH ×2 (09:09→23:02)
[2019-03-26] MEDS: LISINOPRIL 40 MG TAB PO SCH (09:10)
[2019-03-26] MEDS: hydroCHLOROthiazide 25 MG TAB PO SCH (09:10)
[2019-03-26] MEDS: INSULIN REGULAR, HUMAN 100 UNITS/1 ML SUB-Q SCH ×4 (09:10→23:02)
--- NOTE | 2019-03-26 16:02 | Consultation ---
History of Present Illness - HPI Consult date: 03/26/19 Consult reason: fracture History of present illness: This 73-year-old female who complains of left ankle pain and swelling after a fall.... Past medical history significant for CVA with left-sided weakness Medications and Allergies Allergies Allergy/AdvReac Type Severity Reaction Status Date / Time Penicillins Allergy Unknown Verified 05/12/13 12:57 Home Medications Medication Instructions Recorded Confirmed Last Taken Type hydroCHLOROthiazide [HCTZ] 25 mg PO QDAY 03/20/19 03/20/19 03/19/19 History Aspirin 325 mg PO QDAY #30 tablet 03/27/19 Unknown Rx AtorvaSTATin [Lipitor] 2 tab PO QHS #60 tablet 03/27/19 Unknown Rx Lisinopril [Zestril TAB] 40 mg PO QDAY #30 tablet 03/27/19 Unknown Rx amLODIPine [Norvasc] 10 mg PO DAILY #90 tab 03/27/19 Unknown Rx cloNIDine [Catapres] 0.1 mg PO QHS #30 tablet 03/27/19 Unknown Rx metFORMIN [Glucophage] 500 mg PO BID #60 tablet 03/27/19 Unknown Rx Active Meds: Active Medications Amlodipine Besylate (Norvasc) 10 mg PO DAILY [facility] Last Admin: 03/26/19 09:08 Dose: 10 mg Documented by: Aspirin (Aspirin) 325 mg PO QDAY [facility] Last Admin: 03/26/19 09:09 Dose: 325 mg Documented by: Atorvastatin Calcium (Lipitor) 80 mg PO QHS [facility] Last Admin: 03/25/19 21:21 Dose: 80 mg Documented by: Clonidine HCl (Catapres) 0.1 mg PO QHS [facility] Last Admin: 03/25/19 21:22 Dose: 0.1 mg Documented by: Dextrose (D50w (25gm) Syringe) 50 ml IV PRN PRN PRN Reason: Hypoglycemia Hydrochlorothiazide (Hctz) 25 mg PO QDAY [facility] Last Admin: 03/26/19 09:10 Dose: 25 mg Documented by: Dextrose/Sodium Chloride (D5/0.45ns) 1,000 mls @ 100 mls/hr IV DIRECT [facility] Last Admin: 03/26/19 13:09 Dose: 100 mls/hr Documented by: Insulin Human Regular (Humulin R) 0 units SUB-Q ACHS [facility]; Protocol Last Admin: 03/26/19 13:08 Dose: Not Given Documented by: Lisinopril (Zestril) 40 mg PO QDAY [facility] Last Admin: 03/26/19 09:10 Dose: 40 mg Documented by: Loperamide HCl (Imodium) 2 mg PO Q2H PRN PRN Reason: Diarrhea Last Admin: 03/25/19 13:01 Dose: 2 mg Documented by: Metformin HCl (Glucophage) 500 mg PO BID [facility] Last Admin: 03/26/19 09:09 Dose: 500 mg Documented by: Physical Examination - Physical exam Narrative exam: left ankle - mildly swollen, no obvious deformity, tender at distal fibula, decreased passive ROM plain xrays left ankle reviewed by me and show minimally displaced bimalleolar fx ... Eyes: PERRL ENT: Positive: clear oral mucosa Respiratory effort: normal Respiratory: bilateral: CTA Rhythm: regular Heart Sounds: Positive: S1 & S2 General gastrointestinal: Positive: soft, non-tender, non-distended, normal bowel sounds Integumentary: clear, warm, dry Neurologic: Positive: CNII-XII intact, moves all extremities, gait normal. Negative: focal deficits Assessment and Plan asses - nondisplaced bimalleolar fx left ankle recommend - treat conservatively, walking boot, PT for gait training touchdown weight bearing left LE...
--- NOTE | 2019-03-26 17:29 | Progress Note ---
Assessment and Plan Assessment and plan: Patient is a 73 yo AA woman with a history of type 2 DM and hypertension and CVA with left sided deficits who presents with AMS with confusion and worsening left sided weakness on 03/20/19. By the time MRI was done, acute stroke who listed as subacute is >72 hours by Radiologist stroke timeline. * Brain MRI IMPRESSION: Subacute infarction in the right middle cerebral artery territory Encephalomalacia in both cerebral hemispheres. Acute ischemic CVA. Treat with asa/statin Multi-infarct dementia. Neurology following. Hypertension. Cont. antihypertensive medications. Diabetes mellitus type II. Continue Accu-Cheks and sliding scale insulin. Resumed metformin. Generalized weakness. PT/OT eval recommended SARAH Left ankle fracture: Ortho evaluate, no plans for surgery so far Disposition. d/w son Constantin Amanda at bedside, changed mind about SNF again, he is ok with SNF since she has ankle fracture, so await placement History Interval history: Patient was seen and examined. Follow-up on current diagnosis of CVA. No overnight events reported to me. Patient denies any chest pain, shortness breath, nausea/vomiting or severe headaches. Imaging, nursing note, chart, labs and old chart reviewed. Discussed with patient. Hospitalist Physical - Physical exam Narrative exam: Gen: WDWN, NAD, Awake, Alert, Orientated x 2 HEENT: NCAT, EOMI, PERRL, OP Clear Neck: supple, no adenopathy, no thyromegaly, no JVD CVS/Heart: RRR, normal S1S2, pulses present bilaterally Chest/Lungs: CTA B, Symmetrical chest expansion, good air entry bilaterally GI/Abdomen: soft, NTND, good bowel sounds, no guarding or rebound /Bladder: no suprapubic tenderness, no CVA or paraspinal tenderness Extermity/Skin: no c/c/e, no obvious rash MSK: FROM x 3 with left hemiparesis Neuro: CN 2-12 grossly intact, no new focal deficits Psych: calm but confused - Constitutional Vitals: Temp Pulse Resp BP Pulse Ox 98.4 F 76 18 125/58 99 03/26/19 16:08 03/26/19 16:08 03/26/19 16:08 03/26/19 16:08 03/26/19 16:08 General appearance: Present: no acute distress, well-nourished Results - Labs CBC & Chem 7: 03/23/19 07:05 03/23/19 07:05 Labs: Laboratory Last Values WBC 10.0 K/mm3 (4.5-11.0) 03/23/19 07:05 RBC 4.29 M/mm3 (3.65-5.03) 03/23/19 07:05 Hgb 11.9 gm/dl (10.1-14.3) 03/23/19 07:05 Hct 35.7 % (30.3-42.9) 03/23/19 07:05 MCV 83 fl (79-97) 03/23/19 07:05 MCH 28 pg (28-32) 03/23/19 07:05 MCHC 34 % (30-34) 03/23/19 07:05 RDW 13.5 % (13.2-15.2) 03/23/19 07:05 Plt Count 211 K/mm3 (140-440) 03/23/19 07:05 Lymph % (Auto) 27.7 % (13.4-35.0) 03/23/19 07:05 [place] % (Auto) 8.9 % (0.0-7.3) H 03/23/19 07:05 Eos % (Auto) 0.0 % (0.0-4.3) 03/23/19 07:05 Baso % (Auto) 0.6 % (0.0-1.8) 03/23/19 07:05 Lymph # 2.8 K/mm3 (1.2-5.4) 03/23/19 07:05 [place] # 0.9 K/mm3 (0.0-0.8) H 03/23/19 07:05 Eos # 0.0 K/mm3 (0.0-0.4) 03/23/19 07:05 Baso # 0.1 K/mm3 (0.0-0.1) 03/23/19 07:05 Seg Neutrophils % 62.8 % (40.0-70.0) 03/23/19 07:05 Seg Neutrophils # 6.3 K/mm3 (1.8-7.7) 03/23/19 07:05 Sodium 140 mmol/L (137-145) 03/23/19 07:05 Potassium 3.8 mmol/L (3.6-5.0) 03/23/19 07:05 Chloride 102.2 mmol/L (98-107) 03/23/19 07:05 Carbon Dioxide 24 mmol/L (22-30) 03/23/19 07:05 18 mmol/L 03/23/19 07:05 BUN 21 mg/dL (7-17) H 03/23/19 07:05 0.8 mg/dL (0.7-1.2) 03/23/19 07:05 Estimated GFR > 60 ml/min 03/23/19 07:05 26 % 03/23/19 07:05 Glucose 130 mg/dL (65-100) H 03/23/19 07:05 POC Glucose 143 (70-105) H 03/26/19 16:28 Calcium 9.2 mg/dL (8.4-10.2) 03/23/19 07:05 143 units/L (30-135) H 03/21/19 05:50 CK-MB (CK-2) 3.7 ng/mL (0.0-4.0) 03/21/19 05:50 CK-MB (CK-2) Rel Index 2.5 (0-4) 03/21/19 05:50 < 0.010 ng/mL (0.00-0.029) 03/21/19 05:50 Triglycerides 93 mg/dL (2-149) 03/23/19 07:05 Cholesterol 210 mg/dL (50-199) H 03/23/19 07:05 143 mg/dL (50-130) H 03/23/19 07:05 49 mg/dL (40-59) 03/23/19 07:05 4.28 % 03/23/19 07:05 Yellow (Yellow) 03/20/19 16:22 Slightly-cloudy (Clear) 03/20/19 16:22 5.0 (5.0-7.0) 03/20/19 16:22 Ur Specific [place] 1.018 (1.003-1.030) 03/20/19 16:22 <15 mg/dl mg/dL (Negative) 03/20/19 16:22 Neg mg/dL (Negative) 03/20/19 16:22 Neg mg/dL (Negative) 03/20/19 16:22 Neg (Negative) 03/20/19 16:22 Neg (Negative) 03/20/19 16:22 Neg (Negative) 03/20/19 16:22 < 2.0 mg/dL (<2.0) 03/20/19 16:22 Ur Leukocyte Esterase Neg (Negative) 03/20/19 16:22 1.0 /HPF (0.0-6.0) 03/20/19 16:22 < 1.0 /HPF (0.0-6.0) 03/20/19 16:22 2+ /HPF (Negative) 03/20/19 16:22 Few /HPF 03/20/19 16:22 Active Medications - Current Medications Current Medications: Generic Name Dose Route Start Last Admin Trade Name Freq PRN Reason Stop Dose Admin Amlodipine Besylate 10 mg 03/22/19 10:00 03/26/19 09:08 Norvasc PO 10 mg DAILY JULIEN Administration Aspirin 325 mg 03/21/19 10:00 03/26/19 09:09 Aspirin PO 325 mg QDAY JULIEN Administration Atorvastatin Calcium 80 mg 03/21/19 22:00 03/25/19 21:21 Lipitor PO 80 mg QHS JULIEN Administration Clonidine HCl 0.1 mg 03/21/19 22:00 03/25/19 21:22 Catapres PO 0.1 mg QHS JULIEN Administration Dextrose 50 ml 03/20/19 23:20 D50w (25gm) Syringe IV PRN PRN Hypoglycemia Hydrochlorothiazide 25 mg 03/22/19 10:00 03/26/19 09:10 Hctz PO 25 mg QDAY JULIEN Administration Dextrose/Sodium Chloride 1,000 mls @ 100 mls/hr 03/25/19 12:00 03/26/19 13:09 D5/0.45ns IV 100 mls/hr DIRECT JULIEN Administration Insulin Human Regular 0 units 03/21/19 11:30 03/26/19 13:08 Humulin R SUB-Q Not Given ACHS [facility] Protocol Lisinopril 40 mg 03/22/19 10:00 03/26/19 09:10 Zestril PO 40 mg QDAY JULIEN Administration Loperamide HCl 2 mg 03/25/19 11:31 03/25/19 13:01 Imodium PO 2 mg Q2H PRN Administration Diarrhea Metformin HCl 500 mg 03/21/19 22:00 03/26/19 09:09 Glucophage PO 500 mg BID JULIEN Administration Nutrition/Malnutrition Assess - Dietary Evaluation Nutrition/Malnutrition Findings: Nutrition Notes Start: 03/21/19 15:44 Freq: Status: Active Protocol: Document 03/23/19 15:37 RM (Rec: 03/23/19 15:47 RM [id number]) Nutrition Notes Initial or Follow up Reassessment Current Diagnosis Diabetes,Hypertension,Stroke Other Pertinent Diagnosis AMS, Dementia Current Diet Cardiac w/Glucerna 1 daily Labs/Tests BG 130, POC 140 Pertinent Medications Hydrochlorothiazide Height 5 ft 9 in Weight 82 kg [place] Body Weight (kg) 65.90 BMI 26.6 Subjective/Other Information Pt and pt son in room at time of visit. Pt son stated that pt eats 50% to 100% of her meals and drinks the Glucerna. No A1c in record. Pt son stated that pt DM has improved and that pt was told she is now pre diabetic. DM diet education not necessary at this time. Percent of energy/protein needs met: 100%/85% Burn Absent Trauma Absent Minimum of two criteria No #1 Nutrition Diagnosis Inadequate oral intake As Evidenced by Signs and Symptoms pt meeting 100% of calorie and 85% of protein needs Diagnosis Progress(for reassessment Resolved documentation) Is patient on ventilator? No Is Patient Ambulatory and/or Out of Bed No REE-([facility]-confined to bed) [phone] Calculation Used for Recommendations [facility] Additional Notes Protein Needs: 82-98g (1-1.2g/ kg) Fluid Needs: 1 ml/kcal Nutrition Intervention Change Diet Order: Continue current Add Supplement/Snack (indicate name/kcal Glucerna 1 daily /protein ) Provides kCal: 220 Provides Protein (gm) 10 Goal #1 Continue to meet at least 75% of calorie and protein needs via PO and ONS intakes Anticipated Discharge Needs: Cardiac diet + Glucerna 1 daily Follow-Up By: 03/30/19 Additional Comments Follow for PO and ONS intakes
[2019-03-26] MEDS: cloNIDine 0.1 MG TAB PO SCH (23:02)
[2019-03-27] MEDS: INSULIN REGULAR, HUMAN 100 UNITS/1 ML SUB-Q SCH ×3 (09:36→17:45)
[2019-03-27] MEDS: D5W/0.45% NACL 1,000 ML IV SCH (09:40)
[2019-03-27] MEDS: ASPIRIN 325 MG TAB PO SCH (10:32)
[2019-03-27] MEDS: metFORMIN 500 MG TAB PO SCH (10:32)
[2019-03-27] MEDS: hydroCHLOROthiazide 25 MG TAB PO SCH (10:32)
[2019-03-27] MEDS: LISINOPRIL 40 MG TAB PO SCH (10:33)
[2019-03-27] MEDS: amLODIPine 10 MG TAB PO SCH (10:33)
--- NOTE | 2019-03-27 12:57 | Progress Note ---
Assessment and Plan Assessment and plan: Patient is a 73 yo AA woman with a history of type 2 DM and hypertension and CVA with left sided deficits who presents with AMS with confusion and worsening left sided weakness on 03/20/19. By the time MRI was done, acute stroke who listed as subacute is >72 hours by Radiologist stroke timeline. * Brain MRI IMPRESSION: Subacute infarction in the right middle cerebral artery territory Encephalomalacia in both cerebral hemispheres. Acute ischemic CVA. Treat with asa/statin Multi-infarct dementia. Neurology following. Hypertension. Cont. antihypertensive medications. Diabetes mellitus type II. Continue Accu-Cheks and sliding scale insulin. Resumed metformin. Generalized weakness. PT/OT eval recommended SARAH Left ankle fracture: Ortho evaluate, no plans for surgery so far Disposition. d/w son Constantin Amanda at bedside, changed mind about SNF again, he is ok with SNF since she has ankle fracture, so await placement History Interval history: Patient was seen and examined. Follow-up on current diagnosis of CVA. No overnight events reported to me. Patient denies any chest pain, shortness breath, nausea/vomiting or severe headaches. Imaging, nursing note, chart, labs and old chart reviewed. Discussed with patient. Hospitalist Physical - Physical exam Narrative exam: Gen: WDWN, NAD, Awake, Alert, Orientated x 2 HEENT: NCAT, EOMI, PERRL, OP Clear Neck: supple, no adenopathy, no thyromegaly, no JVD CVS/Heart: RRR, normal S1S2, pulses present bilaterally Chest/Lungs: CTA B, Symmetrical chest expansion, good air entry bilaterally GI/Abdomen: soft, NTND, good bowel sounds, no guarding or rebound /Bladder: no suprapubic tenderness, no CVA or paraspinal tenderness Extermity/Skin: no c/c/e, no obvious rash MSK: FROM x 3 with left hemiparesis Neuro: CN 2-12 grossly intact, no new focal deficits Psych: calm but confused - Constitutional Vitals: Temp Pulse Resp BP Pulse Ox 98.0 F 72 18 142/66 99 03/27/19 11:43 03/27/19 11:43 03/27/19 11:43 03/27/19 11:43 03/27/19 11:43 General appearance: Present: no acute distress, well-nourished Results - Labs CBC & Chem 7: 03/23/19 07:05 03/23/19 07:05 Labs: Laboratory Last Values WBC 10.0 K/mm3 (4.5-11.0) 03/23/19 07:05 RBC 4.29 M/mm3 (3.65-5.03) 03/23/19 07:05 Hgb 11.9 gm/dl (10.1-14.3) 03/23/19 07:05 Hct 35.7 % (30.3-42.9) 03/23/19 07:05 MCV 83 fl (79-97) 03/23/19 07:05 MCH 28 pg (28-32) 03/23/19 07:05 MCHC 34 % (30-34) 03/23/19 07:05 RDW 13.5 % (13.2-15.2) 03/23/19 07:05 Plt Count 211 K/mm3 (140-440) 03/23/19 07:05 Lymph % (Auto) 27.7 % (13.4-35.0) 03/23/19 07:05 [place] % (Auto) 8.9 % (0.0-7.3) H 03/23/19 07:05 Eos % (Auto) 0.0 % (0.0-4.3) 03/23/19 07:05 Baso % (Auto) 0.6 % (0.0-1.8) 03/23/19 07:05 Lymph # 2.8 K/mm3 (1.2-5.4) 03/23/19 07:05 [place] # 0.9 K/mm3 (0.0-0.8) H 03/23/19 07:05 Eos # 0.0 K/mm3 (0.0-0.4) 03/23/19 07:05 Baso # 0.1 K/mm3 (0.0-0.1) 03/23/19 07:05 Seg Neutrophils % 62.8 % (40.0-70.0) 03/23/19 07:05 Seg Neutrophils # 6.3 K/mm3 (1.8-7.7) 03/23/19 07:05 Sodium 140 mmol/L (137-145) 03/23/19 07:05 Potassium 3.8 mmol/L (3.6-5.0) 03/23/19 07:05 Chloride 102.2 mmol/L (98-107) 03/23/19 07:05 Carbon Dioxide 24 mmol/L (22-30) 03/23/19 07:05 18 mmol/L 03/23/19 07:05 BUN 21 mg/dL (7-17) H 03/23/19 07:05 0.8 mg/dL (0.7-1.2) 03/23/19 07:05 Estimated GFR > 60 ml/min 03/23/19 07:05 26 % 03/23/19 07:05 Glucose 130 mg/dL (65-100) H 03/23/19 07:05 POC Glucose 179 (70-105) H 03/27/19 11:49 Calcium 9.2 mg/dL (8.4-10.2) 03/23/19 07:05 143 units/L (30-135) H 03/21/19 05:50 CK-MB (CK-2) 3.7 ng/mL (0.0-4.0) 03/21/19 05:50 CK-MB (CK-2) Rel Index 2.5 (0-4) 03/21/19 05:50 < 0.010 ng/mL (0.00-0.029) 03/21/19 05:50 Triglycerides 93 mg/dL (2-149) 03/23/19 07:05 Cholesterol 210 mg/dL (50-199) H 03/23/19 07:05 143 mg/dL (50-130) H 03/23/19 07:05 49 mg/dL (40-59) 03/23/19 07:05 4.28 % 03/23/19 07:05 Yellow (Yellow) 03/20/19 16:22 Slightly-cloudy (Clear) 03/20/19 16:22 5.0 (5.0-7.0) 03/20/19 16:22 Ur Specific [place] 1.018 (1.003-1.030) 03/20/19 16:22 <15 mg/dl mg/dL (Negative) 03/20/19 16:22 Neg mg/dL (Negative) 03/20/19 16:22 Neg mg/dL (Negative) 03/20/19 16:22 Neg (Negative) 03/20/19 16:22 Neg (Negative) 03/20/19 16:22 Neg (Negative) 03/20/19 16:22 < 2.0 mg/dL (<2.0) 03/20/19 16:22 Ur Leukocyte Esterase Neg (Negative) 03/20/19 16:22 1.0 /HPF (0.0-6.0) 03/20/19 16:22 < 1.0 /HPF (0.0-6.0) 03/20/19 16:22 2+ /HPF (Negative) 03/20/19 16:22 Few /HPF 03/20/19 16:22 Active Medications - Current Medications Current Medications: Generic Name Dose Route Start Last Admin Trade Name Freq PRN Reason Stop Dose Admin Amlodipine Besylate 10 mg 03/22/19 10:00 03/27/19 10:33 Norvasc PO 10 mg DAILY JULIEN Administration Aspirin 325 mg 03/21/19 10:00 03/27/19 10:32 Aspirin PO 325 mg QDAY JULIEN Administration Atorvastatin Calcium 80 mg 03/21/19 22:00 03/26/19 23:02 Lipitor PO 80 mg QHS UJLIEN Administration Clonidine HCl 0.1 mg 03/21/19 22:00 03/26/19 23:02 Catapres PO 0.1 mg QHS JULIEN Administration Dextrose 50 ml 03/20/19 23:20 D50w (25gm) Syringe IV PRN PRN Hypoglycemia Hydrochlorothiazide 25 mg 03/22/19 10:00 03/27/19 10:32 Hctz PO 25 mg QDAY JULIEN Administration Dextrose/Sodium Chloride 1,000 mls @ 100 mls/hr 03/25/19 12:00 03/27/19 09:40 D5/0.45ns IV 100 mls/hr DIRECT JULIEN Administration Insulin Human Regular 0 units 03/21/19 11:30 03/27/19 09:36 Humulin R SUB-Q 1 units ACHS JULIEN Administration Protocol Lisinopril 40 mg 03/22/19 10:00 03/27/19 10:33 Zestril PO 40 mg QDAY JULIEN Administration Loperamide HCl 2 mg 03/25/19 11:31 03/25/19 13:01 Imodium PO 2 mg Q2H PRN Administration Diarrhea Metformin HCl 500 mg 03/21/19 22:00 03/27/19 10:32 Glucophage PO 500 mg BID JULIEN Administration Nutrition/Malnutrition Assess - Dietary Evaluation Nutrition/Malnutrition Findings: Nutrition Notes Start: 03/21/19 15:44 Freq: Status: Active Protocol: Document 03/23/19 15:37 RM (Rec: 03/23/19 15:47 RM [id number]) Nutrition Notes Initial or Follow up Reassessment Current Diagnosis Diabetes,Hypertension,Stroke Other Pertinent Diagnosis AMS, Dementia Current Diet Cardiac w/Glucerna 1 daily Labs/Tests BG 130, POC 140 Pertinent Medications Hydrochlorothiazide Height 5 ft 9 in Weight 82 kg [place] Body Weight (kg) 65.90 BMI 26.6 Subjective/Other Information Pt and pt son in room at time of visit. Pt son stated that pt eats 50% to 100% of her meals and drinks the Glucerna. No A1c in record. Pt son stated that pt DM has improved and that pt was told she is now pre diabetic. DM diet education not necessary at this time. Percent of energy/protein needs met: 100%/85% Burn Absent Trauma Absent Minimum of two criteria No #1 Nutrition Diagnosis Inadequate oral intake As Evidenced by Signs and Symptoms pt meeting 100% of calorie and 85% of protein needs Diagnosis Progress(for reassessment Resolved documentation) Is patient on ventilator? No Is Patient Ambulatory and/or Out of Bed No REE-([facility]-confined to bed) 2103.032 Calculation Used for Recommendations [facility] Additional Notes Protein Needs: 82-98g (1-1.2g/ kg) Fluid Needs: 1 ml/kcal Nutrition Intervention Change Diet Order: Continue current Add Supplement/Snack (indicate name/kcal Glucerna 1 daily /protein ) Provides kCal: 220 Provides Protein (gm) 10 Goal #1 Continue to meet at least 75% of calorie and protein needs via PO and ONS intakes Anticipated Discharge Needs: Cardiac diet + Glucerna 1 daily Follow-Up By: 03/30/19 Additional Comments Follow for PO and ONS intakes
[2019-03-27 16:31] VITALS: BP 141/57
== END 2019-03-27 19:25 | DRG 65 ==
LOC: ED 13:34 → 4A 23:11
PROVIDERS: ADMIT Internal Medicine; ATTEND Internal Medicine
PROC: 3E0234Z Introduction of Serum, Toxoid and Vaccine into Muscle, Percutaneous Approach (ICD-10-PCS; principal; 2019-03-21)
DX: I63.9 Cerebral infarction, unspecified (principal); G93.40 Encephalopathy, unspecified; R65.10 Systemic inflammatory response syndrome (SIRS) of non-infectious origin without acute organ dysfunction; I69.354 Hemiplegia and hemiparesis following cerebral infarction affecting left non-dominant side; R53.1 Weakness; E11.9 Type 2 diabetes mellitus without complications; M25.572 Pain in left ankle and joints of left foot; S82.845A Nondisplaced bimalleolar fracture of left lower leg, initial encounter for closed fracture; W19.XXXA Unspecified fall, initial encounter; I10 Essential (primary) hypertension; F03.90 Unspecified dementia, unspecified severity, without behavioral disturbance, psychotic disturbance, mood disturbance, and anxiety; Z23 Encounter for immunization; Z79.84 Long term (current) use of oral hypoglycemic drugs; Z88.0 Allergy status to penicillin; Z79.899 Other long term (current) drug therapy; Y93.89 Activity, other specified; Y92.89 Other specified places as the place of occurrence of the external cause; Y99.8 Other external cause status
CPT/HCPCS: 36415; 70450; 70551; 72125; 74019; 80048; 80061; 81001; 82550; 82553; 82962; 84484; 85025; 90732; 93005; 93010; 93306; 93880; G0378; A9270-GY; J1815

== ENCOUNTER 2019-05-22 12:53 | Emergency (ER) | payer MEDICARE ==
[2019-05-22 14:25] LABS: Basophils # (Auto) 0.1 K/mm3 (0.0-0.1); Basophils % (Auto) 0.6 % (0.0-1.8); Eosinophils % (Auto) 0.1 % (0.0-4.3); Hematocrit 37.8 % (30.3-42.9); Lymphocytes # (Auto) 2.4 K/mm3 (1.2-5.4); Lymphocytes % (Auto) 19.1 % (13.4-35.0); Mean Corpuscular HGB Conc 32 % (30-34); Mean Corpuscular Volume 84 fl (79-97); Monocytes % (Auto) 7.6 % (0.0-7.3); Platelet Count 273 K/mm3 (140-440); Red Blood Count 4.48 M/mm3 (3.65-5.03); Red Cell Distribution Width 14.6 % (13.2-15.2)
--- NOTE | 2019-05-22 14:27 | XRay Report ---
CHEST 1 VIEW 05/22/2019 2:01 PM INDICATION / CLINICAL INFORMATION: poor appetite. COMPARISON: None available. FINDINGS: SUPPORT DEVICES: None. HEART / MEDIASTINUM: Normal heart size. Atherosclerosis in the thoracic aorta. LUNGS / PLEURA: No significant pulmonary or pleural abnormality. No pneumothorax. ADDITIONAL FINDINGS: No significant additional findings. IMPRESSION: 1. No acute findings. Signer Name: Mika Fry MD Signed: 05/22/2019 2:22 PM Workstation Name: [id number]
[2019-05-22 14:30] LABS: BUN/Creatinine Ratio 41; Blood Urea Nitrogen 33 mg/dL (7-17); Calcium 9.6 mg/dL (8.4-10.2); Hemolysis Index 2
[2019-05-22] MEDS ORDERED: POTASSIUM CHLORIDE ER 20 MEQ TAB PO ONE (14:36)
[2019-05-22] MEDS ORDERED: SODIUM CHLORIDE 0.9% 500 ML 500 ML IV ONE (14:36)
--- NOTE | 2019-05-22 14:37 | Emergency Department Report ---
ED General Adult HPI - General Chief complaint: Weakness Stated complaint: FAILURE TO THRIVE Time Seen by Provider: 05/22/19 14:10 Source: patient, EMS ( EMS documentation not available at time of chart dictation ), RN notes reviewed, old records reviewed Mode of arrival: Stretcher Limitations: Physical Limitation, Other (patient is demented, and the patient is a poor historian) - History of Present Illness Initial comments: This is a 73-year-old female. She has a history of type 2 diabetes, hypertension stroke, left-sided weakness, dementia, diabetes, high cholesterol. She is currently on Macrobid antibiotic for culture confirmed urinary tract infection. She is sent to the ER by her custodial for evaluation of swallowing difficulty. The patient has no recollection of this complaint. Her only complaint is left-sided chronic knee pain present for weeks and months. She makes no complaint of headache, neck pain, chest pain, abdominal pain or shortness of breath. She cannot describe exacerbating or relieving factors. Nursing team administered swallow study to patient in the ER, and she was able to swallow without significant difficulty. -: unknown Location: left, lower extremity Radiation: other Severity scale (0 -10): 10 Quality: other Consistency: other Improves with: other Worsens with: other Associated Symptoms: other - Related Data Home Medications Medication Instructions Recorded Confirmed Last Taken hydroCHLOROthiazide [HCTZ] 25 mg PO QDAY 03/20/19 03/20/19 03/19/19 Previous Rx's Medication Instructions Recorded Last Taken Type Aspirin 325 mg PO QDAY #30 tablet 03/27/19 Unknown Rx AtorvaSTATin [Lipitor] 2 tab PO QHS #60 tablet 03/27/19 Unknown Rx Lisinopril [Zestril TAB] 40 mg PO QDAY #30 tablet 03/27/19 Unknown Rx amLODIPine 10 mg PO DAILY #90 tab 03/27/19 Unknown Rx cloNIDine [Catapres] 0.1 mg PO QHS #30 tablet 03/27/19 Unknown Rx metFORMIN [Glucophage] 500 mg PO BID #60 tablet 03/27/19 Unknown Rx Allergies Allergy/AdvReac Type Severity Reaction Status Date / Time Penicillins Allergy Unknown Verified 05/12/13 12:57 ED Review of Systems ROS: Stated complaint: FAILURE TO THRIVE Other details as noted in HPI Comment: patient is a poor historian Constitutional: denies: fever Cardiovascular: denies: syncope Gastrointestinal: denies: abdominal pain Genitourinary: denies: dysuria Musculoskeletal: arthralgia, myalgia Neurological: weakness, confusion ED Past Medical Hx - Past Medical History Previous Medical History?: Yes Hx Hypertension: Yes Hx Diabetes: Yes Additional medical history: anemia - Surgical History Past Surgical History?: Yes Additional Surgical History: can't remember - Social History Smoking Status: Never Smoker Substance Use Type: None - Medications Home Medications: Home Medications Medication Instructions Recorded Confirmed Last Taken Type hydroCHLOROthiazide [HCTZ] 25 mg PO QDAY 03/20/19 03/20/19 03/19/19 History Aspirin 325 mg PO QDAY #30 tablet 03/27/19 Unknown Rx AtorvaSTATin [Lipitor] 2 tab PO QHS #60 tablet 03/27/19 Unknown Rx Lisinopril [Zestril TAB] 40 mg PO QDAY #30 tablet 03/27/19 Unknown Rx amLODIPine 10 mg PO DAILY #90 tab 03/27/19 Unknown Rx cloNIDine [Catapres] 0.1 mg PO QHS #30 tablet 03/27/19 Unknown Rx metFORMIN [Glucophage] 500 mg PO BID #60 tablet 03/27/19 Unknown Rx ED Physical Exam - General Limitations: Physical Limitation, Other (patient is demented, and the patient is a poor historian) General appearance: alert, in no apparent distress - Head Head exam: Present: atraumatic, normocephalic - Eye Eye exam: Present: normal appearance. Absent: nystagmus - ENT ENT exam: Present: normal exam, normal orophraynx, mucous membranes moist, normal external ear exam - Neck Neck exam: Present: normal inspection, full ROM. Absent: tenderness, meningismus - Respiratory Respiratory exam: Present: normal lung sounds bilaterally. Absent: respiratory distress - Cardiovascular Cardiovascular Exam: Present: regular rate, normal rhythm, normal heart sounds. Absent: bradycardia, tachycardia, irregular rhythm, systolic murmur, diastolic murmur, rubs, gallop - GI/Abdominal GI/Abdominal exam: Present: soft. Absent: guarding, rebound, rigid, pulsatile mass - Rectal Rectal exam: Present: normal inspection, other (chaperoned by nurse Kvng droan) - External exam: Present: other (chaperoned by nurse Kvng Elliott) - Extremities Exam Extremities exam: Present: normal inspection, other (2+ pulses noted in the bilateral upper, lower extremities. There is no long bone tenderness. Musculoskeletal compartments are soft. The pelvis is stable.) - Back Exam Back exam: Present: normal inspection. Absent: tenderness, CVA tenderness (R), CVA tenderness (L), paraspinal tenderness, vertebral tenderness - Neurological Exam Neurological exam: Present: alert (the patient is alert to name. The patient follows commands.), other (there is no facial droop. The tongue is midline. Ex traocular movements are intact bilaterally. There is chronic weakness left arm and left leg) - Psychiatric Psychiatric exam: Present: flat affect - Skin Skin exam: Present: warm, dry, intact, normal color. Absent: rash ED Course Vital Signs 05/22/19 05/22/19 13:31 15:17 Temperature 98.1 F Pulse Rate 95 H 97 H Respiratory 13 19 Rate Blood Pressure 127/70 131/77 [Left] O2 Sat by Pulse 98 99 Oximetry ED Medical Decision Making - Lab Data Result diagrams: 05/22/19 13:55 05/22/19 13:55 Vital Signs 05/22/19 05/22/19 13:31 15:17 Temperature 98.1 F Pulse Rate 95 H 97 H Respiratory 13 19 Rate Blood Pressure 127/70 131/77 [Left] O2 Sat by Pulse 98 99 Oximetry Lab Results 05/22/19 05/22/19 05/22/19 Range/Units 13:55 13:55 14:43 WBC 12.7 H (4.5-11.0) K/mm3 RBC 4.48 (3.65-5.03) M/mm3 Hgb 12.0 (10.1-14.3) gm/dl Hct 37.8 (30.3-42.9) % MCV 84 (79-97) fl MCH 27 L (28-32) pg MCHC 32 (30-34) % RDW 14.6 (13.2-15.2) % Plt Count 273 (140-440) K/mm3 Lymph % (Auto) 19.1 (13.4-35.0) % [place] % (Auto) 7.6 H (0.0-7.3) % Eos % (Auto) 0.1 (0.0-4.3) % Baso % (Auto) 0.6 (0.0-1.8) % Lymph # 2.4 (1.2-5.4) K/mm3 [place] # 1.0 H (0.0-0.8) K/mm3 Eos # 0.0 (0.0-0.4) K/mm3 Baso # 0.1 (0.0-0.1) K/mm3 Seg Neutrophils % 72.6 H (40.0-70.0) % Seg Neutrophils # 9.2 H (1.8-7.7) K/mm3 PT 13.2 (12.2-14.9) Sec. INR 1.01 (0.87-1.13) APTT 31.2 (24.2-36.6) Sec. Sodium 138 (137-145) mmol/L Potassium 3.4 L (3.6-5.0) mmol/L Chloride 98.7 (98-107) mmol/L Carbon Dioxide 21 L (22-30) mmol/L Anion Gap 22 mmol/L BUN 33 H (7-17) mg/dL Creatinine 0.8 (0.7-1.2) mg/dL Estimated GFR > 60 ml/min BUN/Creatinine Ratio 41 % Glucose 115 H (65-100) mg/dL Calcium 9.6 (8.4-10.2) mg/dL Magnesium (1.7-2.3) mg/dL Total Bilirubin (0.1-1.2) mg/dL Direct Bilirubin (0-0.2) mg/dL Indirect Bilirubin mg/dL AST (5-40) units/L ALT (7-56) units/L Alkaline Phosphatase (35-129) units/L Total Creatine Kinase (30-135) units/L Total Protein (6.3-8.2) g/dL Albumin (3.9-5) g/dL Albumin/Globulin Ratio % Urine Color (Yellow) Urine Turbidity (Clear) Urine pH (5.0-7.0) Ur Specific [place] (1.003-1.030) Urine Protein (Negative) mg/dL Urine Glucose (UA) (Negative) mg/dL Urine Ketones (Negative) mg/dL Urine Blood (Negative) Urine Nitrite (Negative) Urine Bilirubin (Negative) Urine Urobilinogen (<2.0) mg/dL Ur Leukocyte Esterase (Negative) Urine WBC (Auto) (0.0-6.0) /HPF Urine RBC (Auto) (0.0-6.0) /HPF U Epithel Cells (Auto) (0-13.0) /HPF Urine Bacteria (Auto) (Negative) /HPF Urine Mucus /HPF 05/22/19 05/22/19 Range/Units 14:43 14:48 WBC (4.5-11.0) K/mm3 RBC (3.65-5.03) M/mm3 Hgb (10.1-14.3) gm/dl Hct (30.3-42.9) % MCV (79-97) fl MCH (28-32) pg MCHC (30-34) % RDW (13.2-15.2) % Plt Count (140-440) K/mm3 Lymph % (Auto) (13.4-35.0) % [place] % (Auto) (0.0-7.3) % Eos % (Auto) (0.0-4.3) % Baso % (Auto) (0.0-1.8) % Lymph # (1.2-5.4) K/mm3 [place] # (0.0-0.8) K/mm3 Eos # (0.0-0.4) K/mm3 Baso # (0.0-0.1) K/mm3 Seg Neutrophils % (40.0-70.0) % Seg Neutrophils # (1.8-7.7) K/mm3 PT (12.2-14.9) Sec. INR (0.87-1.13) APTT (24.2-36.6) Sec. Sodium (137-145) mmol/L Potassium (3.6-5.0) mmol/L Chloride (98-107) mmol/L Carbon Dioxide (22-30) mmol/L Anion Gap mmol/L BUN (7-17) mg/dL Creatinine (0.7-1.2) mg/dL Estimated GFR ml/min BUN/Creatinine Ratio % Glucose (65-100) mg/dL Calcium (8.4-10.2) mg/dL Magnesium 2.00 (1.7-2.3) mg/dL Total Bilirubin 0.30 (0.1-1.2) mg/dL Direct Bilirubin < 0.2 (0-0.2) mg/dL Indirect Bilirubin 0.1 mg/dL AST 18 (5-40) units/L ALT 8 (7-56) units/L Alkaline Phosphatase 93 (35-129) units/L Total Creatine Kinase 34 (30-135) units/L Total Protein 7.4 (6.3-8.2) g/dL Albumin 3.7 L (3.9-5) g/dL Albumin/Globulin Ratio 1.0 % Urine Color [place] (Yellow) Urine Turbidity Slightly-cloudy (Clear) Urine pH 5.0 (5.0-7.0) Ur Specific [place] 1.021 (1.003-1.030) Urine Protein <15 mg/dl (Negative) mg/dL Urine Glucose (UA) Neg (Negative) mg/dL Urine Ketones 80 (Negative) mg/dL Urine Blood Neg (Negative) Urine Nitrite Neg (Negative) Urine Bilirubin Neg (Negative) Urine Urobilinogen 2.0 (<2.0) mg/dL Ur Leukocyte Esterase Neg (Negative) Urine WBC (Auto) 1.0 (0.0-6.0) /HPF Urine RBC (Auto) 1.0 (0.0-6.0) /HPF U Epithel Cells (Auto) 1.0 (0-13.0) /HPF Urine Bacteria (Auto) 4+ (Negative) /HPF Urine Mucus Few /HPF - EKG Data -: EKG Interpreted by Mo EKG shows normal: sinus rhythm Rate: normal - EKG Data 05/22/19 17:07 EKG today shows a sinus rhythm, 92 bpm, normal axis, QTC is 476 ms, FL interval is 205 ms, there is poor all with progression, there is motion artifact, the EKG is abnormal, and not consistent with STEMI. It is unchanged from prior EKG from March 2019. - Radiology Data Radiology results: report reviewed, image reviewed X-ray the chest is negative for acute disease - Medical Decision Making Differential diagnosis, including not limited to: Dysphagia, dehydration, medical clearance Assessment and plan: 73-year-old female with multiple chronic medical issues who was sent to the emergency room for evaluation of swallowing difficulty. Nursing team is able to give the patient water and she swallows without significant difficulty. She did need her pills to be crushed There is no evidence of aspiration at this time. The patient does not meet criteria for hospitalization for presumed subacute to chronic dysphagia at this time and she is able to tolerate liquid feeds. She will need to follow-up with an outpatient primary care doctor, speech therapist, or gastroenterology for further evaluation. Tachycardia resolved, hypokalemia is addressed. Nursing team able to crush of potassium and given to patient which she was able to take in liquid form Critical care attestation.: If time is entered above; I have spent that time in minutes in the direct care of this critically ill patient, excluding procedure time. ED Disposition Clinical Impression: General medical exam, Hypokalemia Disposition: DC/TX-70 ANOTHER TYPE HLTHCARE Is pt being admited?: No Does the pt Need Aspirin: No Condition: Stable Additional Instructions: Cultures were sent today, and results will be available in the next 3-5 days. Have your primary care doctor contact medical records department to obtain culture results. Patient able to tolerate liquids today without significant difficulty. For the time being, recommend having patient on a liquid diet, recommend crushing up her pills and allowing her to swallow slowly and and obser kel capacity while taking medication. Recommend following up with an outpatient project geologist or speech/swallow therapist within the next 3-5 days. Return to the emergency room right away with projectile vomiting, change in mental status, confusion, inability to tolerate liquid feeds, new, worsened or different symptoms not present on the initial emergency room evaluation. Referrals: [facility] [Provider Group] - 3-5 Days FERNANDEZ VEGA MD [Staff Physician] - 3-5 Days Time of Disposition: 17:08 (d/c back to [facility])
[2019-05-22] MEDS: POTASSIUM CHLORIDE 10 MEQ 10 MEQ/100 ML BAG IV SCH ×2 (15:02→15:53)
[2019-05-22 15:03] LABS: Bacteria,Urine 4+ /HPF (Negative); Bilirubin,Urine NEG (Negative); Blood,Urine NEG (Negative); Color,Urine Amber (Yellow); Mucus,Urine FEW /HPF; Protein,Urine <15 mg/dL mg/dL (Negative)
[2019-05-22 15:03] LABS: INR 1.01 (0.87-1.13)
[2019-05-22 15:04] LABS: Partial Thromboplastin Time 31.2 Sec. (24.2-36.6)
[2019-05-22 15:07] LABS: Alanine Aminotransferase 8 units/L (7-56); Albumin 3.7 g/dL (3.9-5)
[2019-05-22 15:14] LABS: Bilirubin,Direct < 0.2 mg/dL (0-0.2)
[2019-05-22] MEDS ORDERED: ACETAMINOPHEN 325 MG/10.15 ML ORAL LIQD UNIT DOSE PO ONE (17:28)
[2019-05-22 18:58] VITALS: BP 132/67
== END 2019-05-22 21:57 | disposition other institution (70) ==
LOC: ED 12:53
DX: E87.6 Hypokalemia (principal); I10 Essential (primary) hypertension; E11.9 Type 2 diabetes mellitus without complications; E78.00 Pure hypercholesterolemia, unspecified; Z79.82 Long term (current) use of aspirin; Z88.0 Allergy status to penicillin; Z79.899 Other long term (current) drug therapy; Z79.84 Long term (current) use of oral hypoglycemic drugs; Z86.2 Personal history of diseases of the blood and blood-forming organs and certain disorders involving the immune mechanism
CPT/HCPCS: 36415; 71045; 80048; 80076; 81001; 82550; 83735; 85025; 85610; 85730; 87086; 93005; 93010; 96365; 96366; 99285; J3480; J7040

== ENCOUNTER 2019-06-05 09:54 | Outpatient (CLI) | payer MEDICARE ==
--- NOTE | 2019-06-05 11:23 | Fluoroscopy Report ---
BARIUM SWALLOW HISTORY: Dysphagia FINDINGS: 2.7 minutes of fluoroscopy time was utilized. 33 fluoroscopic images were captured. Deglutition is normal. No aspiration was witnessed. Mild focal narrowing of the distal esophagus is suspected just above the GE junction. There is no dis crete mass in this area. A barium tablet did not pass through this area. Delayed AP view of the chest demonstrates persistence of the barium tablet in the distal esophagus. The remainder of the esophagu s is normal caliber and mucosal pattern throughout. Occasional episodes of gastroesophageal reflux to the midesophagus was witnessed. No hiatal hernia. IMPRESSION: Mild focal narrowing of the distal esophagus is suspected as described above. Mild gastroesophageal reflux. Signer Name: Jero Keita Jr, MD Signed: 06/05/2019 11:18 AM Workstation Name: [id number]
== END 2019-06-05 09:55 | disposition home or self-care (01) ==
LOC: FLUORO 09:54
PROVIDERS: ATTEND Nurse Practitioner
DX: K21.9 Gastro-esophageal reflux disease without esophagitis (principal); I25.10 Atherosclerotic heart disease of native coronary artery without angina pectoris; E11.9 Type 2 diabetes mellitus without complications; I10 Essential (primary) hypertension
CPT/HCPCS: 74220

== ENCOUNTER 2019-06-10 18:53 | Inpatient (IN) | payer MEDICARE ==
--- NOTE | 2019-06-10 20:01 | Emergency Department Report ---
HPI - General Time Seen by Provider: 06/10/19 19:35 - HPI HPI: 73-year-old female presents to the emergency department by EMS from her [facility] for appears to be an admission for an EGD secondary to esophageal stricture and some cardiac clearance prior to this procedure. The patient has a past medical history of non-insulin dependent diabetes, CVA with residual left-sided deficits, dementia, hyperlipidemia. The patient was here in May and had a barium swallow study result that will require EGD with possible dilation and will need the cardiac clearance that should be done at the hospital. The patient is a poor historian secondary to h er dementia. ED Past Medical Hx - Past Medical History Previous Medical History?: Yes Hx Hypertension: Yes Hx Diabetes: Yes Hx Dementia: Yes Additional medical history: anemia, CAD, HYPERLIPIDEMIA - Surgical History Past Surgical History?: No Additional Surgical History: can't remember - Social History Smoking Status: Never Smoker Substance Use Type: None - Medications Home Medications: Home Medications Medication Instructions Recorded Confirmed Last Taken Type hydroCHLOROthiazide [HCTZ] 25 mg PO QDAY 03/20/19 06/11/19 03/19/19 History Aspirin 325 mg PO QDAY #30 tablet 03/27/19 06/11/19 Unknown Rx AtorvaSTATin [Lipitor] 2 tab PO QHS #60 tablet 03/27/19 06/11/19 Unknown Rx cloNIDine [Catapres] 0.1 mg PO QHS #30 tablet 03/27/19 06/11/19 Unknown Rx metFORMIN [Glucophage] 500 mg PO BID #60 tablet 03/27/19 06/11/19 Unknown Rx Acetaminophen [Tylenol] 325 mg PO Q8HR PRN 06/11/19 06/11/19 Unknown History Amlodipine Besylate [Norvasc] 10 mg PO DAILY 06/11/19 06/11/19 Unknown History Ascorbic Acid [Vitamin C with Kiersten 500 mg PO BID 06/11/19 06/11/19 Unknown History Hips] Mirtazapine [Remeron 15mg TAB] 15 mg PO DAILY 06/11/19 06/11/19 Unknown History Multivitamin Tab W-MINERAL 1 each PO QD 06/11/19 06/11/19 Unknown History [Multiple Vitamin/Mineral (Theragran M)] Polyethylene Glycol 3350 [Miralax 17 gm PO QDAY 06/11/19 06/11/19 Unknown History 3350] ED Review of Systems ROS: Stated complaint: CHEST PAIN Other details as noted in HPI Comment: Unobtainable due to pts medical conditions Physical Exam - Physical Exam Vital Signs: Vital Signs 06/10/19 19:30 Temperature 999.0 F H Pulse Rate 113 H Respiratory 24 Rate Blood Pressure 123/67 Blood Pressure 123/67 [Left] O2 Sat by Pulse 99 Oximetry Physical Exam: GENERAL: The patient is well-developed well-nourished. HENT: Normocephalic. Atraumatic. Patient has moist mucous membranes. EYES: Extraocular motions are intact. NECK: Supple. Trachea is midline. CHEST/LUNGS: Clear to auscultation. There is no respiratory distress noted. HEART/CARDIOVASCULAR: Regular. There is mild tachycardia. There is no murmur. ABDOMEN: Abdomen is soft, nontender. Patient has normal bowel sounds. There is no abdominal distention. SKIN: Skin is warm and dry. NEURO: The patient is awake and cooperative, but confused. Normal speech. MUSCULOSKELETAL: Patient has some tenderness to palpation to the left lower extremity which is in a orthopedic boot. ED Course Vital Signs 06/10/19 19:30 Temperature 999.0 F H Pulse Rate 113 H Respiratory 24 Rate Blood Pressure 123/67 Blood Pressure 123/67 [Left] O2 Sat by Pulse 99 Oximetry ED Medical Decision Making - Lab Data Result diagrams: 06/10/19 21:29 06/10/19 21:29 - Radiology Data Radiology results: image reviewed interpreted by me: Chest x-ray does not show any acute process. There are no pleural effusions, obvious pneumonia and there is no pneumothorax. Abdominal x-ray shows nonspecific nonobstructive bowel gas - Medical Decision Making This patient was sent in secondary to some swallowing difficulties, and abnormal outpatient barium swallow test, and suspicion of esophageal stricture. There is a note from [facility] saying that the patient will need EGD, possible dilation, and a cardiac clearance done. The patient's labs thus far have been unremarkable. Vital signs stable throughout her ED course. She'll be admitted for further evaluation and was accepted by Dr. Neumann. - Differential Diagnosis esophageal stricture, GERD, CVA Critical Care Time: No Critical care attestation.: If time is entered above; I have spent that time in minutes in the direct care of this critically ill patient, excluding procedure time. ED Disposition Clinical Impression: Abnormal barium swallow Swallowing difficulty Qualifiers: Dysphagia type: unspecified Qualified Code(s): R13.10 - Dysphagia, unspecified Disposition: DC-09 OP ADMIT IP TO THIS HOSP Is pt being admited?: Yes Condition: Stable Time of Disposition: 22:15
--- NOTE | 2019-06-10 20:42 | XRay Report ---
ABDOMEN 3 VIEW(S) INDICATION / CLINICAL INFORMATION: abd pain, difficulty swallowing. COMPARISON: None available. FINDINGS: TUBES / LINES: None. BOWEL GAS PATTERN: No significant abnormality. FREE AIR / EXTRALUMINAL GAS: None seen. ADDITIONAL FINDINGS: Residual contrast is seen in the descending colon and rectosigmoid area. Accompa nying chest x-ray is unremarkable. IMPRESSION: 1. No significant abnormality. Signer Name: Michael Rdz MD Signed: 06/10/2019 8:38 PM Workstation Name: [id number]
[2019-06-10 21:58] LABS: Basophils % (Auto) 0.3 % (0.0-1.8); Hematocrit 31.4 % (30.3-42.9); Hemoglobin 10.2 gm/dl (10.1-14.3); Lymphocytes # (Auto) 2.4 K/mm3 (1.2-5.4); Lymphocytes % (Auto) 26.7 % (13.4-35.0); Mean Corpuscular HGB Conc 32 % (30-34); Mean Corpuscular Volume 83 fl (79-97); Monocytes # (Auto) 1.1 K/mm3 (0.0-0.8); Monocytes % (Auto) 12.5 % (0.0-7.3); Platelet Count 266 K/mm3 (140-440); Red Blood Count 3.79 M/mm3 (3.65-5.03); Red Cell Distribution Width 14.7 % (13.2-15.2)
[2019-06-10 22:06] LABS: Alanine Aminotransferase 6 units/L (7-56); Albumin 3.4 g/dL (3.9-5); BUN/Creatinine Ratio 40; Blood Urea Nitrogen 36 mg/dL (7-17); Calcium 9.2 mg/dL (8.4-10.2); Hemolysis Index 3
[2019-06-10] MEDS ORDERED: ONDANSETRON 4 MG/2 ML INJ IV PRN (22:47)
[2019-06-10] MEDS ORDERED: MORPHINE 2 MG/1 ML INJ IV PRN (22:47)
[2019-06-10] MEDS ORDERED: ACETAMINOPHEN 325 MG TAB PO PRN (22:47)
--- NOTE | 2019-06-11 00:13 | History and Physical Report ---
History of Present Illness Date of examination: 06/10/19 Date of admission: 06/10/19 22:16 Chief complaint: Dysphagia Abnormal barium swallow History of present illness: Patient is a 73-year-old white female resident of a sn[facility] with known history of dementia coronary artery disease and hyperlipidemia presents to the emergency room today to be evaluated for EGD after having a cardiac clearance. Patient had gone for a swallowing study having complained of difficulty swallowing. She was said to have had an abnormal swallowing study and therefore referred for EGD. She denies any fever or chills, no nausea vomiting, no chest pain or shortness of breath. Past History Past Medical History: anemia, CAD, hypertension, hyperlipidemia, stroke, other (Dementia) Past Surgical History: No surgical history Social history: no significant social history Family history: no significant family history Medications and Allergies Allergies Allergy/AdvReac Type Severity Reaction Status Date / Time Penicillins Allergy Unknown Verified 05/12/13 12:57 Home Medications Medication Instructions Recorded Confirmed Last Taken Type hydroCHLOROthiazide [HCTZ] 25 mg PO QDAY 03/20/19 06/11/19 03/19/19 History Aspirin 325 mg PO QDAY #30 tablet 03/27/19 06/11/19 Unknown Rx AtorvaSTATin [Lipitor] 2 tab PO QHS #60 tablet 03/27/19 06/11/19 Unknown Rx cloNIDine [Catapres] 0.1 mg PO QHS #30 tablet 03/27/19 06/11/19 Unknown Rx metFORMIN [Glucophage] 500 mg PO BID #60 tablet 03/27/19 06/11/19 Unknown Rx Acetaminophen [Tylenol] 325 mg PO Q8HR PRN 06/11/19 06/11/19 Unknown History Amlodipine Besylate [Norvasc] 10 mg PO DAILY 06/11/19 06/11/19 Unknown History Ascorbic Acid [Vitamin C with Kiersten 500 mg PO BID 06/11/19 06/11/19 Unknown History Hips] Mirtazapine [Remeron 15mg TAB] 15 mg PO DAILY 06/11/19 06/11/19 Unknown History Multivitamin Tab W-MINERAL 1 each PO QD 06/11/19 06/11/19 Unknown History [Multiple Vitamin/Mineral (Theragran M)] Polyethylene Glycol 3350 [Miralax 17 gm PO QDAY 06/11/19 06/11/19 Unknown History 3350] Active Meds: Active Medications Acetaminophen (Tylenol) 650 mg PO Q4H PRN PRN Reason: Pain MILD(1-3)/Fever >100.5/JASMINE Sodium Chloride (Nacl 0.9% 1000 Ml) 1,000 mls @ 75 mls/hr IV DIRECT JULIEN Morphine Sulfate (Morphine) 2 mg IV Q4H PRN PRN Reason: Pain, Moderate (4-6) Ondansetron HCl (Zofran) 4 mg IV Q8H PRN PRN Reason: Nausea And Vomiting Sodium Chloride (Sodium Chloride Flush Syringe 10 Ml) 10 ml IV BID JULIEN Sodium Chloride (Sodium Chloride Flush Syringe 10 Ml) 10 ml IV PRN PRN PRN Reason: LINE FLUSH Exam - Constitutional Vitals: Temp Pulse Resp BP Pulse Ox 99.0 F 113 H 24 123/67 99 06/10/19 19:30 06/10/19 19:30 06/10/19 19:30 06/10/19 19:30 06/10/19 19:30 General appearance: Present: no acute distress - EENT Eyes: Present: PERRL, EOM intact ENT: hearing intact, clear oral mucosa, dentition normal - Neck Neck: Present: supple, normal ROM - Respiratory Respiratory effort: normal Respiratory: bilateral: CTA - Cardiovascular Rhythm: regular Heart Sounds: Present: S1 & S2 - Extremities Extremities: no ischemia, pulses intact, No edema Peripheral Pulses: within normal limits - Abdominal General gastrointestinal: Present: soft, non-tender, non-distended - Integumentary Integumentary: Present: clear, warm, dry - Musculoskeletal Musculoskeletal: strength equal bilaterally - Psychiatric Psychiatric: appropriate mood/affect, intact judgment & insight, cooperative - Neurologic Neurologic: CNII-XII intact, moves all extremities Results - Labs CBC & Chem 7: 06/10/19 21:29 06/10/19 21:29 Labs: Abnormal lab results 06/10/19 06/10/19 Range/Units 21:29 21:29 MCH 27 L (28-32) pg [place] % (Auto) 12.5 H (0.0-7.3) % [place] # 1.1 H (0.0-0.8) K/mm3 Sodium 135 L (137-145) mmol/L Chloride 97.1 L (98-107) mmol/L Carbon Dioxide 20 L (22-30) mmol/L BUN 36 H (7-17) mg/dL Glucose 129 H (65-100) mg/dL ALT 6 L (7-56) units/L Albumin 3.4 L (3.9-5) g/dL Assessment and Plan - Patient Problems (1) Abnormal barium swallow Current Visit: Yes Status: Acute Plan to address problem: Patient to be scheduled for EGD after having a cardiac clearance. (2) Swallowing difficulty Current Visit: Yes Status: Acute Qualifiers: Dysphagia type: unspecified Qualified Code(s): R13.10 - Dysphagia, unspecified Plan to address problem: Linette swallow said to be abnormal patient is to be scheduled for EGD (3) Hypertension Current Visit: No Status: Acute Plan to address problem: Blood pressure stable we will continue routine home medication (4) Full code status Current Visit: Yes Status: Acute
[2019-06-11] MEDS: SODIUM CHLORIDE 0.9% 1000 ML 1,000 ML IV SCH (05:45)
[2019-06-11 06:33] LABS: Basophils # (Auto) 0.1 K/mm3 (0.0-0.1); Eosinophils % (Auto) 0.1 % (0.0-4.3); Hematocrit 30.9 % (30.3-42.9); Hemoglobin 10.3 gm/dl (10.1-14.3); Lymphocytes # (Auto) 2.1 K/mm3 (1.2-5.4); Lymphocytes % (Auto) 30.6 % (13.4-35.0); Mean Corpuscular HGB Conc 33 % (30-34); Mean Corpuscular Volume 82 fl (79-97); Monocytes % (Auto) 13.6 % (0.0-7.3); Platelet Count 264 K/mm3 (140-440); Red Blood Count 3.75 M/mm3 (3.65-5.03); Red Cell Distribution Width 14.6 % (13.2-15.2)
[2019-06-11 06:38] LABS: INR 1.08 (0.87-1.13)
[2019-06-11 06:50] LABS: BUN/Creatinine Ratio 44; Blood Urea Nitrogen 35 mg/dL (7-17); Calcium 9.4 mg/dL (8.4-10.2); Hemolysis Index 5
[2019-06-11 07:31] LABS: Partial Thromboplastin Time 32.1 Sec. (24.2-36.6)
--- NOTE | 2019-06-11 10:20 | Gastroenterology Consultation ---
History of Present Illness - Reason for Consult Consult date: 06/11/19 dysphagia Requesting physician: THANH ASHBY - History of Present Illness Patient is a 73 y/o female [facility] with PMH of dementia, HTN, HLD, CVA, DM, and reports CAD? who was brought to ED for evaluation of dysphagia to which GI has been consulted. Patient is previously known to our service. She was recently seen in our clinic on 06/01/19 for dysphagia to solids x ~2-3 months s/p stroke with associated regurgitation of food and wt loss of ~20lbs. She underwent an outpatient esophagram on 06/05/19 that showed a mild focal narrowing of the distal esophagus and mild reflux. Denies fever, CP, SOB, abdominal pain, vomiting, signs of bleeding, or LGI symptoms. Past History Past Medical History: other (as per HPI) Past Surgical History: No surgical history Social history: other ([facility] resident). denies: smoking, alcohol abuse Medications and Allergies Allergies Allergy/AdvReac Type Severity Reaction Status Date / Time Penicillins Allergy Unknown Verified 05/12/13 12:57 Home Medications Medication Instructions Recorded Confirmed Last Taken Type hydroCHLOROthiazide [HCTZ] 25 mg PO QDAY 03/20/19 06/11/19 03/19/19 History Aspirin 325 mg PO QDAY #30 tablet 03/27/19 06/11/19 Unknown Rx AtorvaSTATin [Lipitor] 2 tab PO QHS #60 tablet 03/27/19 06/11/19 Unknown Rx cloNIDine [Catapres] 0.1 mg PO QHS #30 tablet 03/27/19 06/11/19 Unknown Rx metFORMIN [Glucophage] 500 mg PO BID #60 tablet 03/27/19 06/11/19 Unknown Rx Acetaminophen [Tylenol] 325 mg PO Q8HR PRN 06/11/19 06/11/19 Unknown History Amlodipine Besylate [Norvasc] 10 mg PO DAILY 06/11/19 06/11/19 Unknown History Ascorbic Acid [Vitamin C with Kiersten 500 mg PO BID 06/11/19 06/11/19 Unknown History Hips] Mirtazapine [Remeron 15mg TAB] 15 mg PO DAILY 06/11/19 06/11/19 Unknown History Multivitamin Tab W-MINERAL 1 each PO QD 06/11/19 06/11/19 Unknown History [Multiple Vitamin/Mineral (Theragran M)] Polyethylene Glycol 3350 [Miralax 17 gm PO QDAY 06/11/19 06/11/19 Unknown History 3350] Active Meds: Active Medications Acetaminophen (Tylenol) 650 mg PO Q4H PRN PRN Reason: Pain MILD(1-3)/Fever >100.5/JASMINE Sodium Chloride (Nacl 0.9% 1000 Ml) 1,000 mls @ 75 mls/hr IV DIRECT [facility] Last Admin: 06/11/19 05:45 Dose: 75 mls/hr Documented by: Morphine Sulfate (Morphine) 2 mg IV Q4H PRN PRN Reason: Pain, Moderate (4-6) Ondansetron HCl (Zofran) 4 mg IV Q8H PRN PRN Reason: Nausea And Vomiting Sodium Chloride (Sodium Chloride Flush Syringe 10 Ml) 10 ml IV BID [facility] Last Admin: 06/11/19 09:11 Dose: 10 ml Documented by: Sodium Chloride (Sodium Chloride Flush Syringe 10 Ml) 10 ml IV PRN PRN PRN Reason: LINE FLUSH medications reviewed/updated as required Review of Systems - Review of Systems All systems: negative Constitutional: weight loss Gastrointestinal: other (dysphagia), no abdominal pain, no nausea, no vomiting Exam - Constitutional Vital Signs: Temp Pulse Resp BP Pulse Ox 99.0 F 94 H 18 129/73 98 06/10/19 19:30 06/11/19 00:52 06/11/19 00:52 06/11/19 00:52 06/11/19 00:52 General appearance: no acute distress - EENT Eyes: PERRL, EOM intact ENT: hearing intact - Respiratory Respiratory effort: normal Respiratory: bilateral: diminished - Cardiovascular Rhythm: regular - Gastrointestinal General gastrointestinal: Present: soft, non-tender, non-distended, normal bowel sounds - Integumentary Integumentary: Present: warm, dry - Neurologic Neurological: oriented to person - Labs CBC & Chem 7: 06/11/19 06:09 06/11/19 06:09 Lab Results: Laboratory Results - last 24 hr 06/10/19 06/10/19 06/11/19 21:29 21:29 06:09 WBC 8.9 7.0 RBC 3.79 3.75 Hgb 10.2 10.3 Hct 31.4 30.9 MCV 83 82 MCH 27 L 27 L MCHC 32 33 RDW 14.7 14.6 Plt Count 266 264 Lymph % (Auto) 26.7 30.6 [place] % (Auto) 12.5 H 13.6 H Eos % (Auto) 0.0 0.1 Baso % (Auto) 0.3 1.0 Lymph # 2.4 2.1 [place] # 1.1 H 1.0 H Eos # 0.0 0.0 Baso # 0.0 0.1 Seg Neutrophils % 60.5 54.7 Seg Neutrophils # 5.4 3.8 PT INR APTT Sodium 135 L Potassium 4.0 Chloride 97.1 L Carbon Dioxide 20 L Anion Gap 22 BUN 36 H Creatinine 0.9 Estimated GFR > 60 BUN/Creatinine Ratio 40 Glucose 129 H Calcium 9.2 Total Bilirubin 0.40 AST 14 ALT 6 L Alkaline Phosphatase 104 Total Protein 6.7 Albumin 3.4 L Albumin/Globulin Ratio 1.0 06/11/19 06/11/19 06:09 06:09 WBC RBC Hgb Hct MCV MCH MCHC RDW Plt Count Lymph % (Auto) [place] % (Auto) Eos % (Auto) Baso % (Auto) Lymph # [place] # Eos # Baso # Seg Neutrophils % Seg Neutrophils # PT 14.1 INR 1.08 APTT 32.1 Sodium 138 Potassium 3.9 Chloride 101.0 Carbon Dioxide 21 L Anion Gap 20 BUN 35 H Creatinine 0.8 Estimated GFR > 60 BUN/Creatinine Ratio 44 Glucose 130 H Calcium 9.4 Total Bilirubin AST ALT Alkaline Phosphatase Total Protein Albumin Albumin/Globulin Ratio Assessment and Plan 1.dysphagia -dysphagia to solids x ~2-3 months s/p stroke with associated regurgitation and wt loss -abnormal esophagram on 06/05/19 that showed a mild focal narrowing in distal esophagus, along with mild reflux -will schedule for EGD (with possible dilation) today for further evaluation- spoke with patient's daughter (Anabell Ulrich [phone]) regarding EGD to include risks and benefits to which she is agreeable for us to proceed) -Keep NPO -daily PPI -continue supportive care -cardiology risk stratification completed and appreciated- perioperative risk moderate but okay to proceed with GI endoscopy; EF 60-65% -will follow
--- NOTE | 2019-06-11 11:25 | Progress Note ---
Assessment and Plan Assessment and plan: Dysphagia. EGD per GI. Patient will likely need cardiac clearance. Continue nothing by mouth status for now. Hypertension. Continue antihypertensive medications. CAD. Cardiology consult. Hyperlipidemia. Continue statins. History CVA. Supportive care. History Interval history: Patient is a 73-year-old white female resident of a longterm with known history of dementia coronary artery disease and hyperlipidemia presents to the emergency room today to be evaluated for EGD after having a cardiac clearance. Patient had gone for a swallowing study having complained of difficulty swallowing. She was said to have had an abnormal swallowing study and therefore referred for EGD. Hospitalist Physical - Constitutional Vitals: Temp Pulse Resp BP Pulse Ox 99.0 F 94 H 18 129/73 98 06/10/19 19:30 06/11/19 00:52 06/11/19 00:52 06/11/19 00:52 06/11/19 00:52 General appearance: Present: no acute distress - EENT Eyes: Present: PERRL, EOM intact ENT: hearing intact, clear oral mucosa, dentition normal - Neck Neck: Present: supple, normal ROM - Respiratory Respiratory effort: normal Respiratory: bilateral: CTA - Cardiovascular Rhythm: regular Heart Sounds: Present: S1 & S2. Absent: gallop, rub - Extremities Extremities: no ischemia, No edema, Full ROM - Abdominal General gastrointestinal: soft, non-tender, non-distended, normal bowel sounds - Integumentary Integumentary: Present: clear, warm, dry - Neurologic Neurologic: CNII-XII intact, moves all extremities Results - Labs CBC & Chem 7: 06/11/19 06:09 06/11/19 06:09 Labs: Laboratory Last Values WBC 7.0 K/mm3 (4.5-11.0) 06/11/19 06:09 RBC 3.75 M/mm3 (3.65-5.03) 06/11/19 06:09 Hgb 10.3 gm/dl (10.1-14.3) 06/11/19 06:09 Hct 30.9 % (30.3-42.9) 06/11/19 06:09 MCV 82 fl (79-97) 06/11/19 06:09 MCH 27 pg (28-32) L 06/11/19 06:09 MCHC 33 % (30-34) 06/11/19 06:09 RDW 14.6 % (13.2-15.2) 06/11/19 06:09 Plt Count 264 K/mm3 (140-440) 06/11/19 06:09 Lymph % (Auto) 30.6 % (13.4-35.0) 06/11/19 06:09 [place] % (Auto) 13.6 % (0.0-7.3) H 06/11/19 06:09 Eos % (Auto) 0.1 % (0.0-4.3) 06/11/19 06:09 Baso % (Auto) 1.0 % (0.0-1.8) 06/11/19 06:09 Lymph # 2.1 K/mm3 (1.2-5.4) 06/11/19 06:09 [place] # 1.0 K/mm3 (0.0-0.8) H 06/11/19 06:09 Eos # 0.0 K/mm3 (0.0-0.4) 06/11/19 06:09 Baso # 0.1 K/mm3 (0.0-0.1) 06/11/19 06:09 Seg Neutrophils % 54.7 % (40.0-70.0) 06/11/19 06:09 Seg Neutrophils # 3.8 K/mm3 (1.8-7.7) 06/11/19 06:09 PT 14.1 Sec. (12.2-14.9) 06/11/19 06:09 INR 1.08 (0.87-1.13) 06/11/19 06:09 APTT 32.1 Sec. (24.2-36.6) 06/11/19 06:09 Sodium 138 mmol/L (137-145) 06/11/19 06:09 Potassium 3.9 mmol/L (3.6-5.0) 06/11/19 06:09 Chloride 101.0 mmol/L (98-107) 06/11/19 06:09 Carbon Dioxide 21 mmol/L (22-30) L 06/11/19 06:09 Anion Gap 20 mmol/L 06/11/19 06:09 BUN 35 mg/dL (7-17) H 06/11/19 06:09 Creatinine 0.8 mg/dL (0.7-1.2) 06/11/19 06:09 Estimated GFR > 60 ml/min 06/11/19 06:09 BUN/Creatinine Ratio 44 % 06/11/19 06:09 Glucose 130 mg/dL (65-100) H 06/11/19 06:09 Calcium 9.4 mg/dL (8.4-10.2) 06/11/19 06:09 Total Bilirubin 0.40 mg/dL (0.1-1.2) 06/10/19 21:29 AST 14 units/L (5-40) 06/10/19 21:29 ALT 6 units/L (7-56) L 06/10/19 21:29 Alkaline Phosphatase 104 units/L (35-129) 06/10/19 21:29 Total Protein 6.7 g/dL (6.3-8.2) 06/10/19 21:29 Albumin 3.4 g/dL (3.9-5) L 06/10/19 21:29 Albumin/Globulin Ratio 1.0 % 06/10/19 21:29 Active Medications - Current Medications Current Medications: Generic Name Dose Route Start Last Admin Trade Name Freq PRN Reason Stop Dose Admin Acetaminophen 650 mg 06/10/19 22:47 Tylenol PO Q4H PRN Pain MILD(1-3)/Fever >100.5/JASMINE Sodium Chloride 1,000 mls @ 75 mls/hr 06/10/19 23:00 06/11/19 05:45 Nacl 0.9% 1000 Ml IV 75 mls/hr DIRECT JULIEN Administration Morphine Sulfate 2 mg 06/10/19 22:47 Morphine IV Q4H PRN Pain, Moderate (4-6) Ondansetron HCl 4 mg 06/10/19 22:47 Zofran IV Q8H PRN Nausea And Vomiting Sodium Chloride 10 ml 06/11/19 10:00 06/11/19 09:11 Sodium Chloride Flush Syringe 10 Ml IV 10 ml BID JULIEN Administration Sodium Chloride 10 ml 06/10/19 22:47 Sodium Chloride Flush Syringe 10 Ml IV PRN PRN LINE FLUSH
--- NOTE | 2019-06-11 11:31 | Consultation ---
History of Present Illness Consult date: 06/11/19 Consult reason: pre op evaluation History of present illness: This is a 73-year old [facility] resident that is admitted with dysphagia. Patient is awaiting GI evaluation and workup. A cardiac consultation has been requested for preoperative cardiac risk assessment. Patient has a history of hypertension, CVA and diabetes. Patient is unable to provide prior cardiac history. Patient denies shortness of breath, chest pain and palpitations. An echocardiogram done at this hospital in March reports a normal left ventricular systolic function, ejection fraction 60-65%. An ECG done today is sinus rhythm, no acute ischemic changes. Medications and Allergies Allergies Allergy/AdvReac Type Severity Reaction Status Date / Time Penicillins Allergy Unknown Verified 05/12/13 12:57 Home Medications Medication Instructions Recorded Confirmed Last Taken Type hydroCHLOROthiazide [HCTZ] 25 mg PO QDAY 03/20/19 06/11/19 03/19/19 History Aspirin 325 mg PO QDAY #30 tablet 03/27/19 06/11/19 Unknown Rx AtorvaSTATin [Lipitor] 2 tab PO QHS #60 tablet 03/27/19 06/11/19 Unknown Rx cloNIDine [Catapres] 0.1 mg PO QHS #30 tablet 03/27/19 06/11/19 Unknown Rx metFORMIN [Glucophage] 500 mg PO BID #60 tablet 03/27/19 06/11/19 Unknown Rx Acetaminophen [Tylenol] 325 mg PO Q8HR PRN 06/11/19 06/11/19 Unknown History Amlodipine Besylate [Norvasc] 10 mg PO DAILY 06/11/19 06/11/19 Unknown History Ascorbic Acid [Vitamin C with Kiersten 500 mg PO BID 06/11/19 06/11/19 Unknown History Hips] Mirtazapine [Remeron 15mg TAB] 15 mg PO DAILY 06/11/19 06/11/19 Unknown History Multivitamin Tab W-MINERAL 1 each PO QD 06/11/19 06/11/19 Unknown History [Multiple Vitamin/Mineral (Theragran M)] Polyethylene Glycol 3350 [Miralax 17 gm PO QDAY 06/11/19 06/11/19 Unknown History 3350] Active Meds: Active Medications Acetaminophen (Tylenol) 650 mg PO Q4H PRN PRN Reason: Pain MILD(1-3)/Fever >100.5/JASMINE Sodium Chloride (Nacl 0.9% 1000 Ml) 1,000 mls @ 75 mls/hr IV DIRECT [facility] Last Admin: 06/11/19 05:45 Dose: 75 mls/hr Documented by: Morphine Sulfate (Morphine) 2 mg IV Q4H PRN PRN Reason: Pain, Moderate (4-6) Ondansetron HCl (Zofran) 4 mg IV Q8H PRN PRN Reason: Nausea And Vomiting Sodium Chloride (Sodium Chloride Flush Syringe 10 Ml) 10 ml IV BID [facility] Last Admin: 06/11/19 09:11 Dose: 10 ml Documented by: Sodium Chloride (Sodium Chloride Flush Syringe 10 Ml) 10 ml IV PRN PRN PRN Reason: LINE FLUSH Physical Examination Vital Signs Temp Pulse Resp BP Pulse Ox 99.0 F 113 H 24 123/67 99 06/10/19 19:30 06/10/19 19:30 06/10/19 19:30 06/10/19 19:30 06/10/19 19:30 General appearance: no acute distress HEENT: Positive: PERRL Neck: Positive: trachea midline Cardiac: Positive: Reg Rate and Rhythm Lungs: Positive: Decreased Breath Sounds Neuro: Positive: Weakness Results 06/11/19 06:09 06/11/19 06:09 Cardiac Enzymes 06/10/19 Range/Units 21:29 AST 14 (5-40) units/L Coagulation 06/11/19 Range/Units 06:09 PT 14.1 (12.2-14.9) Sec. INR 1.08 (0.87-1.13) APTT 32.1 (24.2-36.6) Sec. CBC 06/10/19 06/11/19 Range/Units 21:29 06:09 WBC 8.9 7.0 (4.5-11.0) K/mm3 RBC 3.79 3.75 (3.65-5.03) M/mm3 Hgb 10.2 10.3 (10.1-14.3) gm/dl Hct 31.4 30.9 (30.3-42.9) % Plt Count 266 264 (140-440) K/mm3 Lymph # 2.4 2.1 (1.2-5.4) K/mm3 [place] # 1.1 H 1.0 H (0.0-0.8) K/mm3 Eos # 0.0 0.0 (0.0-0.4) K/mm3 Baso # 0.0 0.1 (0.0-0.1) K/mm3 Comprehensive Metabolic Panel 06/10/19 06/11/19 Range/Units 21:29 06:09 Sodium 135 L 138 (137-145) mmol/L Potassium 4.0 3.9 (3.6-5.0) mmol/L Chloride 97.1 L 101.0 (98-107) mmol/L Carbon Dioxide 20 L 21 L (22-30) mmol/L BUN 36 H 35 H (7-17) mg/dL Creatinine 0.9 0.8 (0.7-1.2) mg/dL Glucose 129 H 130 H (65-100) mg/dL Calcium 9.2 9.4 (8.4-10.2) mg/dL AST 14 (5-40) units/L ALT 6 L (7-56) units/L Alkaline Phosphatase 104 (35-129) units/L Total Protein 6.7 (6.3-8.2) g/dL Albumin 3.4 L (3.9-5) g/dL
[2019-06-11] MEDS ORDERED: LIDOCAINE MPF (2%) 20 MG/1 ML VIAL 5 ML ONE (15:00)
[2019-06-11] MEDS ORDERED: SODIUM CHLORIDE 0.9% 1000 ML 1,000 ML ONE (15:18)
[2019-06-11] MEDS ORDERED: PROPOFOL 200 MG/20 ML VIAL IV ONE (15:39)
--- NOTE | 2019-06-11 15:41 | Anesthesia Day of Surgery ---
Anesthesia Day of Surgery - Day of Surgery Patient Examined: Yes Patient H&P Reviewed: Yes Patient is NPO: Yes
--- NOTE | 2019-06-11 15:47 | Anesthesia Consultation ---
Anesthesia Consult and Med Hx Date of service: 06/11/19 - Airway Anesthetic Teeth Evaluation: Poor, Edentulous (Upper) ROM Head & Neck: Adequate Mental/Hyoid Distance: Adequate Mallampati Class: Class II Intubation Access Assessment: Good - Pre-Operative Health Status ASA Pre-Surgery Classification: ASA3 Proposed Anesthetic Plan: MAC - Cardiovascular System Hx Hypertension: Yes Hx Coronary Artery Disease: Yes (+Cardiac Clearance) - Central Nervous System Hx Neuromuscular Disorder: Yes (Dementia) CVA: Yes - Gastrointestinal Hx Gastroesophageal Reflux Disease: Yes - Hematic Hx Anemia: Yes - Additional Comments Anesthesia Medical History Comments: ECHO [id number] a normal left ventricular systolic function, EF 60-65%. An ECG done today is sinus rhythm, no acute ischemic changes.
[2019-06-11] MEDS ORDERED: fentaNYL 100 MCG/2 ML INJ ONE (15:50)
--- NOTE | 2019-06-11 16:06 | Operative Report ---
Operative Report Operative Report: Date: 06/11/2019 Pre procedure diagnosis: dysphagia Post procedure diagnosis: tortuous esophagus, a small hiatal hernia Procedure: Esophagogastroduodenoscopy with biopsies and esophageal dilation Endoscopist: Shayan Melissa MD Medications: Per anesthesia- see separate records for details Complications: none Estimated blood loss: None After careful discussion of the nature and purpose of the procedure, details of the technique, risks, benefits and alternatives, the patient gave consent. The patient was placed in the left lateral decubitus position and medicated by anesthesia- see separate records for details. The tip of the olympus video upper scope was passed per orum under direct view through the mouth and into the esophagus, stomach and duodenum. The scope was advanced to the second portion of the duodenum without difficulty. The second portion of the duodenum were normal. The bulb revealed normal findings. The scope was withdrawn back into the stomach and the stomach gently insufflated with air. The antrum revealed normal findings. Biopsies were obtained from the antrum and the gastric body. The scope was then retroflexed and partially withdrawn to inspect the proximal stomach. The cardia, fundus and body were normal appearing. The scope was then withdrawn in the forward view. The EG junction was at 40 cm from the incisors. There was a small hiatal hernia. The distal esophagus revealed somewhat tortuous esophagus with mild narrowing but no obstruction or resistance with scope passage. The distal esophagus was dilated using a balloon dilator 15-18 mm up to 18 mm. No obvious associated Barger's esophagus or varices. The rest of the esophagus was normal. Biopsies were obtained from the esophagus. The procedure was well tolerated and the patient was observed in the GI recovery unit. IMPRESSION: 1. A small hiatal hernia. 2. Somewhat tortuous and mild narrowing in the distal esophagus but no obstruction. Dilation performed with balloon dilator up to 18 mm successfully. Biopsies obtained. 3. Rest of the exam was normal. Plan: 1. Resume diet. 2. Ok for discharge once tolerating diet. Follow up in GI clinic. 3. Will sign off. Shayan Melissa MD (Jenny) [facility]
--- NOTE | 2019-06-11 18:26 | Discharge Summary ---
Providers - Providers Date of Admission: 06/10/19 22:16 Date of discharge: 06/11/19 Attending physician: AVIS STEIN 06/10/19 22:47 Consult to Physician [CONS] Routine Comment: Consulting Provider: ASUNCION GARZA Physician Instructions: Reason For Exam: DYSPHAGIA. EVALUATE FOR EGD 06/10/19 22:50 Consult to Physician [CONS] Routine Comment: Consulting Provider: SOFIA EVANS Physician Instructions: Reason For Exam: CARDIAC/MEDICAL CLEARANCE PRIOR TO EGD 06/11/19 11:25 Speech Therapy Evaluation and Treat [CONS] Urgent Reason For Exam: difficulty in swallowing Primary care physician: TAX ATTORNEY Hospitalization Reason for admission: epigastric pain Condition: Stable Hospital course: Patient is a 73 y/o female long term resident with PMH of dementia, HTN, HLD, CVA, DM, and reports CAD? who was brought to ED for evaluation of dysphagia to which GI was consulted. She was recently seen by GI on 06/01/19 for dysphagia to solids x ~2-3 months s/p stroke with associated regurgitation of food and wt loss of ~20lbs. She underwent an outpatient esophagram on 06/05/19 that showed a mild focal narrowing of the distal esophagus and mild reflux. Pt. was admitted with dx of dysphagia. Cardiology cleared pt for EGD and she underwent EGD on 06/11/19. EGD revealed : small hiatal hernia. Somewhat tortuous and mild narrowing in the distal esophagus but no obstruction. Dilation performed with balloon dilator up to 18 mm successfully. Biopsies obtained. Rest of the exam was normal. GI felt pt could d/c. Dedicated d/c time 32 min Disposition: [id number] [facility] Time spent for discharge: 32 - Discharge Diagnoses (1) Abnormal barium swallow Status: Acute (2) Swallowing difficulty Status: Acute Qualifiers: Dysphagia type: unspecified Qualified Code(s): R13.10 - Dysphagia, unspecified Core Measure Documentation - Palliative Care Palliative Care/ Comfort Measures: Not Applicable - Core Measures Any of the following diagnoses?: none Exam - Constitutional Vitals: Temp Pulse Resp BP Pulse Ox 99.2 F 95 H 20 139/74 100 06/11/19 16:01 06/11/19 16:20 06/11/19 16:20 06/11/19 16:20 06/11/19 16:20 General appearance: Present: no acute distress, well-nourished - EENT Eyes: Present: PERRL ENT: hearing intact, clear oral mucosa - Neck Neck: Present: supple, normal ROM - Respiratory Respiratory effort: normal Respiratory: bilateral: CTA - Cardiovascular Heart Sounds: Present: S1 & S2. Absent: rub, click - Extremities Extremities: pulses symmetrical, No edema Peripheral Pulses: within normal limits - Abdominal General gastrointestinal: Present: soft, non-tender, non-distended, normal bowel sounds Female genitourinary: Present: normal - Integumentary Integumentary: Present: clear, warm, dry - Musculoskeletal Musculoskeletal: gait normal, strength equal bilaterally - Psychiatric Psychiatric: appropriate mood/affect, intact judgment & insight - Neurologic Neurologic: CNII-XII intact, moves all extremities Plan Activity: advance as tolerated Weight Bearing Status: Weight Bear as Tolerated Follow up with: PRIMARY CAREMD [Primary Care Provider] - 7 Days
--- NOTE | 2019-06-11 22:36 | Post Anesthesia Evaluation ---
- Post Anesthesia Evaluation Patient Participated: Yes Airway Patent: Yes Stable Respiratory Function: Yes Nausea/Vomiting: No Temp > 96.8F: Yes Pain Manageable: Yes Adequeate Hydration: Yes Anesthesia Complications: No Block Receding Appropriately: Not Applicable Patient on Ventilator: No
[2019-06-12] MEDS: SODIUM CHLORIDE 0.9% 1000 ML 1,000 ML IV SCH (00:16)
[2019-06-12 05:41] VITALS: BP 126/52
== END 2019-06-12 11:30 | DRG 392 ==
LOC: ED 18:53 → OBSVTOIN 22:16 → 3A 22:16
PROVIDERS: ADMIT Internal Medicine Geriatric Medicine; ATTEND Hospitalist
PROC: 0DB38ZX Excision of Lower Esophagus, Via Natural or Artificial Opening Endoscopic, Diagnostic (ICD-10-PCS; principal; 2019-06-11)
PROC: 0DB68ZX Excision of Stomach, Via Natural or Artificial Opening Endoscopic, Diagnostic (ICD-10-PCS; 2019-06-11)
PROC: 0D758ZZ Dilation of Esophagus, Via Natural or Artificial Opening Endoscopic (ICD-10-PCS; 2019-06-11)
DX: K22.2 Esophageal obstruction (principal); I69.354 Hemiplegia and hemiparesis following cerebral infarction affecting left non-dominant side; R13.10 Dysphagia, unspecified; R93.3 Abnormal findings on diagnostic imaging of other parts of digestive tract; E11.9 Type 2 diabetes mellitus without complications; I10 Essential (primary) hypertension; K21.9 Gastro-esophageal reflux disease without esophagitis; K44.9 Diaphragmatic hernia without obstruction or gangrene; F03.90 Unspecified dementia, unspecified severity, without behavioral disturbance, psychotic disturbance, mood disturbance, and anxiety; I25.10 Atherosclerotic heart disease of native coronary artery without angina pectoris; Z79.82 Long term (current) use of aspirin; Z79.899 Other long term (current) drug therapy; Z79.84 Long term (current) use of oral hypoglycemic drugs
CPT/HCPCS: 36415; 74022; 80048; 80053; 85025; 85610; 85730; 88305; 93005; 93010; G0378; C1726; J2704; J3010; J7030

== ENCOUNTER 2020-01-29 13:13 | Emergency (ER) | payer MEDICARE, OTHER ==
--- NOTE | 2020-01-29 16:01 | Cat Scan Report ---
CT ABDOMEN AND PELVIS WITHOUT CONTRAST HISTORY: no bm in 2 weeks. COMPARISON: None. TECHNIQUE: CT images of the abdomen and pelvis were obtained without administration of intravenous co ntrast. All CT scans at this location are performed using CT dose reduction for ALARA by means of au tomated exposure control. FINDINGS: Lungs/bones: Mild levoscoliotic curvature of the spine centered at the thoracolumbar junction, with grade 1 anterolisthesis of L4 on L5. Mild multilevel discogenic DJD. No acute osseous abnormality ayala ntified. There are degenerative changes in the pelvis as well. Minimal bibasilar atelectasis is prese nt in the lungs. Abdomen/pelvis: There is cholelithiasis with several small gallstones but there is no inflammatory c hange or wall thickening. The liver, spleen, pancreas, adrenals, kidneys, and proximal GI tract appea r unremarkable. There is moderate atherosclerotic disease throughout the abdominal aorta and branch vessels. Urinary bladder an reproductive organs appear unremarkable. There is moderate colonic stool burden bu t no bowel obstruction or acute abnormality. No significant diverticular disease. The appendix is nor mal. IMPRESSION: 1. Moderate colonic stool burden can be seen with mild constipation. Otherwise no bowel obstruction o r perforation. 2. Mild cholelithiasis without cholecystitis. Signer Name: Ian Flores MD Signed: 01/29/2020 3:57 PM Workstation Name: [id number]
[2020-01-29 16:24] LABS: Basophils # (Auto) 0.1 K/mm3 (0.0-0.1); Basophils % (Auto) 1.1 % (0.0-1.8); Hematocrit 36.5 % (30.3-42.9); Hemoglobin 11.4 gm/dl (10.1-14.3); Lymphocytes # (Auto) 2.7 K/mm3 (1.2-5.4); Lymphocytes % (Auto) 46.6 % (13.4-35.0); Mean Corpuscular HGB Conc 31 % (30-34); Mean Corpuscular Volume 88 fl (79-97); Monocytes # (Auto) 0.5 K/mm3 (0.0-0.8); Platelet Count 240 K/mm3 (140-440); Red Blood Count 4.16 M/mm3 (3.65-5.03); Red Cell Distribution Width 15.6 % (13.2-15.2)
[2020-01-29 16:36] LABS: Albumin 3.7 g/dL (3.9-5); Blood Urea Nitrogen 8 mg/dL (7-17); Calcium 9.4 mg/dL (8.4-10.2); Hemolysis Index 120
[2020-01-29 16:43] LABS: Alanine Aminotransferase < 5 units/L (7-56); BUN/Creatinine Ratio 20
[2020-01-29] MEDS ORDERED: LACTULOSE 20 GM/30 ML ORAL LIQD PO ONE (16:48)
--- NOTE | 2020-01-29 17:00 | Emergency Department Report ---
HPI - General Chief Complaint: Abdominal Pain Time Seen by Provider: 01/29/20 16:46 - HPI HPI: Room 24 The patient is a 74-year-old female present with a chief complaint of constipation. The patient was sent in by family secondary to constipation. Pat ient states she has not had a bowel movement in 4 weeks. Patient denies nausea vomiting or abdominal pain. Patient denies cough. The patient initially states she does not want any treatment for her constipation would prefer to go home. Patient was convinced to at least take a dose of lactulose. Patient not willing to undergo enema or rectal exam ED Past Medical Hx - Past Medical History Previous Medical History?: Yes Hx Hypertension: Yes Hx CVA: Yes (L side weakness) Hx Diabetes: Yes Hx Dementia: Yes Additional medical history: anemia, CAD, HYPERLIPIDEMIA - Surgical History Past Surgical History?: No Additional Surgical History: GIULIANO - Family History Family history: no significant - Social History Smoking Status: Never Smoker Substance Use Type: None - Medications Home Medications: Home Medications Medication Instructions Recorded Confirmed Last Taken Type hydroCHLOROthiazide [HCTZ] 25 mg PO QDAY 03/20/19 06/11/19 03/19/19 History Aspirin 325 mg PO QDAY #30 tablet 03/27/19 06/11/19 Unknown Rx AtorvaSTATin [Lipitor] 2 tab PO QHS #60 tablet 03/27/19 06/11/19 Unknown Rx cloNIDine [Catapres] 0.1 mg PO QHS #30 tablet 03/27/19 06/11/19 Unknown Rx metFORMIN [Glucophage] 500 mg PO BID #60 tablet 03/27/19 06/11/19 Unknown Rx Acetaminophen [Tylenol] 325 mg PO Q8HR PRN 06/11/19 06/11/19 Unknown History Amlodipine Besylate [Norvasc] 10 mg PO DAILY 06/11/19 06/11/19 Unknown History Ascorbic Acid [Vitamin C with Kiersten 500 mg PO BID 06/11/19 06/11/19 Unknown Histo ry Hips] Mirtazapine [Remeron 15mg TAB] 15 mg PO DAILY 06/11/19 06/11/19 Unknown History Multivitamin Tab W-MINERAL 1 each PO QD 06/11/19 06/11/19 Unknown History [Multiple Vitamin/Mineral (Theragran M)] polyethylene glycoL 3350 [Miralax 17 gm PO QDAY 06/11/19 06/11/19 Unknown History 3350] Docusate Sodium [Colace] 100 mg PO BID #60 capsule 01/29/20 Unknown Rx Lactulose [Cephulac] 20 gm PO QDAY PRN #90 ml 01/29/20 Unknown Rx ED Review of Systems ROS: Stated complaint: ABD PAIN Other details as noted in HPI Constitutional: no symptoms reported Respiratory: no symptoms reported Endocrine: no symptoms reported Gastrointestinal: constipation. denies: abdominal pain, vomiting Physical Exam - Physical Exam Vital Signs: Vital Signs 01/29/20 01/29/20 01/29/20 13:25 13:42 13:45 Temperature 99 F Pulse Rate 72 67 Respiratory 18 18 14 Rate Blood Pressure 167/69 167/69 O2 Sat by Pulse 100 99 99 Oximetry 01/29/20 01/29/20 01/29/20 14:31 14:45 15:01 Temperature Pulse Rate 63 62 Respiratory 11 L 20 Rate Blood Pressure 177/70 169/66 O2 Sat by Pulse 98 96 Oximetry 01/29/20 15:15 Temperature Pulse Rate 62 Respiratory 16 Rate Blood Pressure 161/62 O2 Sat by Pulse 96 Oximetry Physical Exam: GENERAL: The patient is well-developed well-nourished female lying on stretcher not appearing to be in acute distress. [] HEENT: Normocephalic. Atraumatic. Extraocular motions are intact. Patient has moist mucous membranes. NECK: Supple. Trachea midline CHEST/LUNGS: There is no respiratory distress noted. ABDOMEN: Abdomen is pain-free. There is no abdominal distention. SKIN: There is no rash. There is no edema. There is no diaphoresis. NEURO: The patient is awake and alert. The patient is cooperative. The patient has normal speech MUSCULOSKELETAL: There is no evidence of acute injury. ED Course Vital Signs 01/29/20 01/29/20 01/29/20 13:25 13:42 13:45 Temperature 99 F Pulse Rate 72 67 Respiratory 18 18 14 Rate Blood Pressure 167/69 167/69 O2 Sat by Pulse 100 99 99 Oximetry 01/29/20 01/29/20 01/29/20 14:31 14:45 15:01 Temperature Pulse Rate 63 62 Respiratory 11 L 20 Rate Blood Pressure 177/70 169/66 O2 Sat by Pulse 98 96 Oximetry 01/29/20 15:15 Temperature Pulse Rate 62 Respiratory 16 Rate Blood Pressure 161/62 O2 Sat by Pulse 96 Oximetry ED Medical Decision Making - Lab Data Result diagrams: 01/29/20 16:03 01/29/20 16:03 Laboratory Tests 01/29/20 01/29/20 16:03 16:03 WBC 5.8 RBC 4.16 Hgb 11.4 Hct 36.5 MCV 88 MCH 27 L MCHC 31 RDW 15.6 H Plt Count 240 Lymph % (Auto) 46.6 H [place] % (Auto) 9.0 H Eos % (Auto) 0.0 Baso % (Auto) 1.1 Lymph # 2.7 [place] # 0.5 Eos # 0.0 Baso # 0.1 Seg Neutrophils % 43.3 Seg Neutrophils # 2.5 Sodium 140 Potassium 4.5 Chloride 108.5 H Carbon Dioxide 18 L Anion Gap 18 BUN 8 Creatinine 0.4 L Estimated GFR > 60 BUN/Creatinine Ratio 20 Glucose 91 Calcium 9.4 Total Bilirubin 0.30 AST 13 ALT < 5 L Alkaline Phosphatase 52 Total Protein 6.4 Albumin 3.7 L Albumin/Globulin Ratio 1.4 - Differential Diagnosis Constipation Critical care attestation.: If time is entered above; I have spent that time in minutes in the direct care of this critically ill patient, excluding procedure time. ED Disposition Clinical Impression: Constipation Disposition: DC-01 TO HOME OR SELFCARE Is pt being admited?: No Does the pt Need Aspirin: No Condition: Stable Instructions: Constipation (ED) Additional Instructions: Return to the emergency department should you develop worsening symptoms, inability to tolerate food or liquids, high fever or any other concerns Prescriptions: Lactulose [Cephulac] 20 gm PO QDAY PRN #90 ml PRN Reason: Constipation Docusate Sodium [Colace] 100 mg PO BID #60 capsule Referrals: SAGE ROBERTSON MD [Primary Care Provider] - 3-5 Days Time of Disposition: 17:10
[2020-01-29 19:21] VITALS: BP 170/88
== END 2020-01-29 19:18 | disposition home or self-care (01) ==
LOC: ED 13:13
DX: K59.00 Constipation, unspecified (principal); I10 Essential (primary) hypertension; E11.9 Type 2 diabetes mellitus without complications; F03.90 Unspecified dementia, unspecified severity, without behavioral disturbance, psychotic disturbance, mood disturbance, and anxiety; Z86.2 Personal history of diseases of the blood and blood-forming organs and certain disorders involving the immune mechanism; Z79.899 Other long term (current) drug therapy; Z88.0 Allergy status to penicillin
CPT/HCPCS: 36415; 74176; 80053; 85025

== ENCOUNTER 2020-05-22 18:58 | Emergency (ER) | payer MEDICARE ==
--- NOTE | 2020-05-22 20:21 | Emergency Department Report ---
ED Abdominal Pain HPI - General Chief Complaint: Abdominal Pain Stated Complaint: CONSTIPATION Time Seen by Provider: 05/22/20 20:11 Source: patient, EMS, old records reviewed Mode of arrival: Stretcher Limitations: No Limitations - History of Present Illness Initial Comments: 74-year-old female with a past medical history of dementia, CVA with left-sided deficit, hypertension, diabetes, anemia, and CAD presents to the hospital with complaints of constipation. As per EMS from reports no bowel movement in the past 3 weeks (contrary to triage note which indicates the past 3 days). As per EMS patient states family states patient is eating properly without nausea or vomiting. No other complaints reported. Upon arrival patient is oriented to self, place, but not to year. She is unclear as to why she is here. She denies abdominal pain. Patient was here for similar complaints in December had a CAT scan confirming constipation was discharged on laxatives. Severity scale (0 -10): 0 - Related Data Home Medications Medication Instructions Recorded Confirmed Last Taken hydroCHLOROthiazide [HCTZ] 25 mg PO QDAY 03/20/19 06/11/19 03/19/19 Acetaminophen [Tylenol] 325 mg PO Q8HR PRN 06/11/19 06/11/19 Unknown Amlodipine Besylate [Norvasc] 10 mg PO DAILY 06/11/19 06/11/19 Unknown Ascorbic Acid [Vitamin C with Kiersten 500 mg PO BID 06/11/19 06/11/19 Unknown Hips] Mirtazapine [Remeron 15mg TAB] 15 mg PO DAILY 06/11/19 06/11/19 Unknown Multivitamin Tab W-MINERAL 1 each PO QD 06/11/19 06/11/19 Unknown [Multiple Vitamin/Mineral (Theragran M)] polyethylene glycoL 3350 [Miralax 17 gm PO QDAY 06/11/19 06/11/19 Unknown 3350] Previous Rx's Medication Instructions Recorded Last Taken Type Aspirin 325 mg PO QDAY #30 tablet 03/27/19 Unknown Rx AtorvaSTATin [Lipitor] 2 tab PO QHS #60 tablet 03/27/19 Unknown Rx cloNIDine [Catapres] 0.1 mg PO QHS #30 tablet 03/27/19 Unknown Rx metFORMIN [Glucophage] 500 mg PO BID #60 tablet 03/27/19 Unknown Rx Docusate Sodium [Colace] 100 mg PO BID #60 capsule 01/29/20 Unknown Rx Lactulose [Cephulac] 20 gm PO QDAY PRN #90 ml 01/29/20 Unknown Rx Lactulose [Kristalose] 20 gm PO QDAY PRN #7 packet 05/23/20 Unknown Rx Allergies Allergy/AdvReac Type Severity Reaction Status Date / Time Penicillins Allergy Unknown Verified 05/12/13 12:57 ED Review of Systems ROS: Stated complaint: CONSTIPATION Other details as noted in HPI Comment: All other systems reviewed and negative ED Past Medical Hx - Past Medical History Hx Hypertension: Yes Hx CVA: Yes (L side weakness) Hx Diabetes: Yes Hx Dementia: Yes Additional medical history: anemia, CAD, HYPERLIPIDEMIA - Surgical History Additional Surgical History: GIULIANO - Social History Smoking Status: Never Smoker - Medications Home Medications: Home Medications Medication Instructions Recorded Confirmed Last Taken Type hydroCHLOROthiazide [HCTZ] 25 mg PO QDAY 03/20/19 06/11/19 03/19/19 History Aspirin 325 mg PO QDAY #30 tablet 03/27/19 06/11/19 Unknown Rx AtorvaSTATin [Lipitor] 2 tab PO QHS #60 tablet 03/27/19 06/11/19 Unknown Rx cloNIDine [Catapres] 0.1 mg PO QHS #30 tablet 03/27/19 06/11/19 Unknown Rx metFORMIN [Glucophage] 500 mg PO BID #60 tablet 03/27/19 06/11/19 Unknown Rx Acetaminophen [Tylenol] 325 mg PO Q8HR PRN 06/11/19 06/11/19 Unknown History Amlodipine Besylate [Norvasc] 10 mg PO DAILY 06/11/19 06/11/19 Unknown History Ascorbic Acid [Vitamin C with Kiersten 500 mg PO BID 06/11/19 06/11/19 Unknown Hist ory Hips] Mirtazapine [Remeron 15mg TAB] 15 mg PO DAILY 06/11/19 06/11/19 Unknown History Multivitamin Tab W-MINERAL 1 each PO QD 06/11/19 06/11/19 Unknown History [Multiple Vitamin/Mineral (Theragran M)] polyethylene glycoL 3350 [Miralax 17 gm PO QDAY 06/11/19 06/11/19 Unknown History 3350] Docusate Sodium [Colace] 100 mg PO BID #60 capsule 01/29/20 Unknown Rx Lactulose [Cephulac] 20 gm PO QDAY PRN #90 ml 01/29/20 Unknown Rx Lactulose [Kristalose] 20 gm PO QDAY PRN #7 packet 05/23/20 Unknown Rx ED Physical Exam - General Limitations: No Limitations - Other Other exam information: General: No acute distress Head: Atraumatic Eyes: normal appearance ENT: Moist mucous membranes Neck: Normal appearance, no midline tenderness Chest: Clear to auscultation bilaterally CV: Regular rate and rhythm Abdomen: Soft, normal bowel sounds, nontender, nondistended, no rebound or guarding Back: Normal inspection Extremity: Normal inspection, full range of motion Neuro: Alert O x 2, left-sided paralysis with contracted extremities. Minimal movement of right extremity held in flexed position at the knee Psych: Appropriate behavior Skin: No rash ED Course Vital Signs 05/22/20 05/22/20 19:55 21:49 Temperature 99.3 F Pulse Rate 102 H Respiratory 18 18 Rate Blood Pressure 150/100 [Left] O2 Sat by Pulse 99 100 Oximetry - Reevaluation(s) Reevaluation #1: 05/23/20 01:30 After initial manual disimpaction patient received a repeat soapsuds enema. Nurse reports that patient had a moderate amount of stool output after enema administration. - Consultations Consultation #1: 05/23/20 01:[address] Rogers on-call GI doctor. Recommends that patient can continue treatment of constipation at home with oral laxative since she is nontoxic-appearing without abdominal pain. Hesitant to continue rectal enemas at home given CT coloinFindings - Procedure Description Procedures done: Patient had minimal output after soapsuds enema. Manual disimpaction performed at the bedside using viscous lidocaine to anesthetize the rectum and anal tissue. I was able to manually disimpact formed stool from the rectal vault with only residual soft watery stool remaining within the reach of my fingers. Repeat enema soapsuds ordered ED Medical Decision Making - Lab Data Result diagrams: 05/22/20 20:40 05/22/20 20:40 Lab Results 05/22/20 05/22/20 Range/Units 20:40 20:40 WBC 10.2 (4.5-11.0) K/mm3 RBC 4.43 (3.65-5.03) M/mm3 Hgb 12.4 (10.1-14.3) gm/dl Hct 38.4 (30.3-42.9) % MCV 87 (79-97) fl MCH 28 (28-32) pg MCHC 32 (30-34) % RDW 13.7 (13.2-15.2) % Plt Count 225 (140-440) K/mm3 Lymph % (Auto) 31.1 (13.4-35.0) % [place] % (Auto) 6.6 (0.0-7.3) % Eos % (Auto) 0.0 (0.0-4.3) % Baso % (Auto) 0.5 (0.0-1.8) % Lymph # (Auto) 3.2 (1.2-5.4) K/mm3 [place] # (Auto) 0.7 (0.0-0.8) K/mm3 Eos # (Auto) 0.0 (0.0-0.4) K/mm3 Baso # (Auto) 0.1 (0.0-0.1) K/mm3 Seg Neutrophils % 61.8 (40.0-70.0) % Seg Neutrophils # 6.3 (1.8-7.7) K/mm3 Sodium 140 (137-145) mmol/L Potassium 3.7 (3.6-5.0) mmol/L Chloride 110.8 H (98-107) mmol/L Carbon Dioxide 16 L (22-30) mmol/L Anion Gap 17 mmol/L BUN 14 (7-17) mg/dL Creatinine 0.5 L (0.6-1.2) mg/dL Estimated GFR > 60 ml/min BUN/Creatinine Ratio 28 % Glucose 112 H (65-100) mg/dL Calcium 9.5 (8.4-10.2) mg/dL Total Bilirubin 0.30 (0.1-1.2) mg/dL AST 5 (5-40) units/L ALT 11 (7-56) units/L Alkaline Phosphatase 68 (35-129) units/L Total Protein 6.7 (6.3-8.2) g/dL Albumin 3.5 L (3.9-5) g/dL Albumin/Globulin Ratio 1.1 % - Radiology Data Radiology results: report reviewed CT ABDOMEN AND PELVIS WITHOUT CONTRAST INDICATION: dementia, decreased bowel movements. TECHNIQUE: Axial CT images were obtained through the abdomen and pelvis without IV contrast. All CT scans at this location are performed using CT dose reduction for ALARA by means of automated exposure control. COMPARISON: CT abdomen pelvis 01/29/2020 FINDINGS: LOWER CHEST: No significant abnormality. LIVER: No significant abnormality. GALLBLADDER: Multiple calcified gallstones again noted BILE DUCTS: No significant abnormality. PANCREAS: No significant abnormality. SPLEEN: No significant abnormality. ADRENALS: No significant abnormality. RIGHT KIDNEY and URETER: No significant abnormality. LEFT KIDNEY and URETER: 5 mm calcification left kidney, unchanged. STOMACH and SMALL BOWEL: No significant abnormality. COLON: Large amount of colonic stool characteristic for constipation with hyperdense stool within rectal vault which is distended measuring 8 cm with rectal wall thickening characteristic for fecal impaction and colitis APPENDIX: No significant abnormality. PERITONEUM: No free fluid. No free air. No fluid collection. LYMPH NODES: No significant adenopathy. AORTA and ARTERIES: Extensive vascular calcifications throughout nonaneurysmal aorta and mesenteric vessels IVC and VEINS: No significant abnormality. URINARY BLADDER: Right posterior dependent bladder calculus image 91 REPRODUCTIVE ORGANS: No significant abnormality. ADDITIONAL FINDINGS: None. SKELETAL SYSTEM: No significant abnormality. IMPRESSION: 1.. Stercolocolitis and fecal impaction with severe constipation 2. Cholelithiasis without CT evidence for cholecystitis. 3. Left nephrolithiasis, unchanged 4 right bladder calculus - Medical Decision Making 74-year-old female history of dementia and CVA with hemiparesis presents to the hospital with acute exacerbation of chronic constipation. As per EMS reports no bowel movement last 3 weeks. Patient has presented to hospital with constipation in the past. CT suggestive constipation with associated colitis. Patient provided a soapsuds enema with minimal response. She received manual disimpaction with repeat enema administration with passage of stool. Patient does not have abdominal pain and is nontoxic appearing. Case discussed with GI physician on-call who recommends oral laxatives to be continued at home and hesitant to continue enema administration at home given colon Findings on CT. Dose of lactulose provided in the ED prior to discharge Critical Care Time: No Critical care attestation.: If time is entered above; I have spent that time in minutes in the direct care of this critically ill patient, excluding procedure time. ED Disposition Clinical Impression: Fecal impaction in rectum, Constipation, Dementia, History of CVA with residual deficit, Unable to walk Disposition: DC-01 TO HOME OR SELFCARE Is pt being admited?: No Does the pt Need Aspirin: No Condition: Stable Instructions: Chronic Constipation, Dementia, Fecal Impaction, Abdominal Pain (ED) Additional Instructions: Take the medication as prescribed. Follow-up with your doctor or doctor/clinic provided. Return if symptoms worsen as indicated by your discharge i nstructions. Prescriptions: Lactulose [Kristalose] 20 gm PO QDAY PRN #7 packet PRN Reason: Constipation Referrals: PRIMARY CAREMD [Primary Care Provider] - 3-5 Days REI ROGERS MD [Staff Physician] - 3-5 Days (GI specialist ) Time of Disposition: 02:41
[2020-05-22 20:47] LABS: Basophils # (Auto) 0.1 K/mm3 (0.0-0.1); Basophils % (Auto) 0.5 % (0.0-1.8); Hematocrit 38.4 % (30.3-42.9); Hemoglobin 12.4 gm/dl (10.1-14.3); Lymphocytes # (Auto) 3.2 K/mm3 (1.2-5.4); Lymphocytes % (Auto) 31.1 % (13.4-35.0); Mean Corpuscular HGB Conc 32 % (30-34); Mean Corpuscular Volume 87 fl (79-97); Monocytes # (Auto) 0.7 K/mm3 (0.0-0.8); Monocytes % (Auto) 6.6 % (0.0-7.3); Platelet Count 225 K/mm3 (140-440); Red Blood Count 4.43 M/mm3 (3.65-5.03); Red Cell Distribution Width 13.7 % (13.2-15.2)
[2020-05-22 21:12] LABS: Alanine Aminotransferase 11 units/L (7-56); Albumin 3.5 g/dL (3.9-5); Blood Urea Nitrogen 14 mg/dL (7-17); Calcium 9.5 mg/dL (8.4-10.2); Hemolysis Index 14
[2020-05-22 21:15] LABS: BUN/Creatinine Ratio 28
--- NOTE | 2020-05-22 21:37 | Cat Scan Report ---
CT ABDOMEN AND PELVIS WITHOUT CONTRAST INDICATION: dementia, decreased bowel movements. TECHNIQUE: Axial CT images were obtained through the abdomen and pelvis without IV contrast. All CT scans at [facility] location are performed using CT dose reduction for ALARA by means of automated exposure control. COMPARISON: CT abdomen pelvis 01/29/2020 FINDINGS: LOWER CHEST: No significant abnormality. LIVER: No significant abnormality. GALLBLADDER: Multiple calcified gallstones again noted BILE DUCTS: No significant abnormality. PANCREAS: No significant abnormality. SPLEEN: No significant abnormality. ADRENALS: No significant abnormality. RIGHT KIDNEY and URETER: No significant abnormality. LEFT KIDNEY and URETER: 5 mm calcification left kidney, unchanged. STOMACH and SMALL BOWEL: No significant abnormality. COLON: Large amount of colonic stool characteristic for constipation with hyperdense stool within rec анна vault which is distended measuring 8 cm with rectal wall thickening characteristic for fecal impa ction and colitis APPENDIX: No significant abnormality. PERITONEUM: No free fluid. No free air. No fluid collection. LYMPH NODES: No significant adenopathy. AORTA and ARTERIES: Extensive vascular calcifications throughout nonaneurysmal aorta and mesenteric v essels IVC and VEINS: No significant abnormality. URINARY BLADDER: Right posterior dependent bladder calculus image 91 REPRODUCTIVE ORGANS: No significant abnormality. ADDITIONAL FINDINGS: None. SKELETAL SYSTEM: No significant abnormality. IMPRESSION: 1.. Stercolocolitis and fecal impaction with severe constipation 2. Cholelithiasis without CT evidence for cholecystitis. 3. Left nephrolithiasis, unchanged 4 right bladder calculus Signer Name: Jose Huerta MD Signed: 05/22/2020 9:32 PM Workstation Name: [id number]
[2020-05-22] MEDS ORDERED: LIDOCAINE VISCOUS 2% 15 ML ORAL LIQD TP NR (23:15)
[2020-05-23] MEDS ORDERED: LACTULOSE 20 GM/30 ML ORAL LIQD PO ONE (01:59)
[2020-05-23] MEDS ORDERED: LACTULOSE 20 GM/30 ML ORAL LIQD ONE (05:31)
[2020-05-23 07:15] VITALS: BP 136/88
== END 2020-05-23 12:56 | disposition home or self-care (01) ==
LOC: ED 18:58
DX: K56.41 Fecal impaction (principal); F03.90 Unspecified dementia, unspecified severity, without behavioral disturbance, psychotic disturbance, mood disturbance, and anxiety; I10 Essential (primary) hypertension; E11.9 Type 2 diabetes mellitus without complications; Z86.73 Personal history of transient ischemic attack (TIA), and cerebral infarction without residual deficits; Z98.890 Other specified postprocedural states; Z79.84 Long term (current) use of oral hypoglycemic drugs; Z79.899 Other long term (current) drug therapy; Z88.0 Allergy status to penicillin
CPT/HCPCS: 36415; 74176; 80053; 85025